=== PATIENT | female | born 1940 | race Caucasian/White ===

== ENCOUNTER → 2018-06-06 12:39 | Outpatient (CLI) | payer MEDICARE, OTHER, SELFPAY ==
--- NOTE | 2018-06-06 12:41 | DI.ECHO.S_ITS ---
[facility] +---------+ : : [address] : [address] : : : : [id number] : : : : Phone: [phone]+ Echocardiogram Report + + :Name: NANCY MOTT Study Date: 06/06/2018 Height: 65 in : :[facility] Exam Location: IS Weight: 105 lb : : Gender: Female BSA: 1.5 m2 : :: 1940 Age: 78 yrs BP: 128/55 mmHg: :Reason For Study: ARRHYTHMIA, SOB : : Performed By: Lex Jenkins : :Referring: UBALDO GREGORY P : + + Interpretation Summary The patient was in normal sinus rhythm during the exam. The patient had frequent PACs during the exam. The left ventricle is normal in size. The ejection fraction is estimated to be 60-65%. There are no focal wall motion abnormalities. Diastolic parameters suggest a relaxation abnormality of the left ventricle, consistent with probable normal filling pressures. The right ventricle is normal in size and function. There is moderate biatrial enlargement. There is slight late systolic prolapse of the posterior leaflet of the mitral valve with evidence of prominent mitral insufficiency that occurs during the last half of systole. This is not a holosystolic jet of mitral regurgitation but a late systolic regurgitation related to prolapse of the posterior leaflet. There is mild aortic regurgitation. The right ventricular systolic pressure is estimated to be at least 25 mmHg based on an estimated right atrial pressure of 3 mm Hg. No other echocardiographic abnormalities seen. This patient has evidence of mitral valve prolapse with late systolic mitral regurgitation of a fairly significant degree. Given the patient's history of dyspnea cardiology consultation should be considered. Procedure: A limited 2D, color and Doppler echocardiogram was performed to assess for arrhythmia and shortness of breath. The study quality was technically good. Comparison is made with the echocardiogram of 11/14/14. The patient was in normal sinus rhythm during the exam. The patient had frequent PACs during the exam. Left Ventricle: The left ventricle is normal in size. There is normal left ventricular wall thickness. The ejection fraction is estimated to be 60-65%. There are no focal wall motion abnormalities. Diastolic parameters suggest a relaxation abnormality of the left ventricle, consistent with probable normal filling pressures. Right Ventricle: The right ventricle is normal in size and function. Atria: There is moderate biatrial enlargement. Mitral Valve: There is a flat closure plane of the the mitral valve leaflets. There is slight late systolic prolapse of the posterior leaflet of the mitral valve with evidence of prominent mitral insufficiency that occurs during the last half of systole. This is not a holosystolic jet of mitral regurgitation but a late systolic regurgitation related to prolapse of the posterior leaflet. Aortic Valve: A bicuspid aortic valve cannot be excluded. There is no hemodynamically significant valvular aortic stenosis. There is mild aortic regurgitation. Tricuspid Valve: The tricuspid valve is normal in structure and function. There is mild tricuspid regurgitation. The right ventricular systolic pressure is estimated to be at least 25 mmHg based on an estimated right atrial pressure of 3 mm Hg. Great Vessels: The ascending aorta is mildly enlarged. The IVC is of normal diameter and collapses greater than 50% with a sniff. This suggests a low right atrial pressure of 3 mm Hg. MMode/2D Measurements & Calculations LVIDd: 4.4 cm asc Aorta Diam: 3.6 cm LVIDs: 2.6 cm FS: 41.2 % IVSd: 0.84 cm LVPWd: 0.86 cm LV burks. diameter/BSA (cm/m^2): 2.9 LV sys. diameter/BSA (cm/m^2): 1.7 LA A2 area: 23.3 cm2 RA long axis: 4.8 cm LA A4 area: 20.3 cm2 RA area: 21.2 cm2 LA length (vol): 5.3 cm RA vol: 79.4 ml LA vol: 75.2 ml RA : 52.8 ml/m2 LA vol index: 50.0 ml/m2 IVC diam: 2.1 cm Doppler Measurements & Calculations MV E max una: 59.3 cm/sec TR max una: 234.6 cm/sec MV A max uan: 72.5 cm/sec TR max P.0 mmHg MV E/A: 0.82 MV dec time: 0.24 sec Reading Physician:05:31 PM
== END ==
PROVIDERS: PCP Student in an Organized Health Care Education/Training Program
DX: I08.3 Combined rheumatic disorders of mitral, aortic and tricuspid valves (principal); I49.9 Cardiac arrhythmia, unspecified; R06.02 Shortness of breath
CPT/HCPCS: 93307

== ENCOUNTER → 2018-06-14 16:14 | Outpatient (CLI) | payer MEDICARE, OTHER, SELFPAY ==
[2018-06-14 17:35] LABS: Reticulocyte Count, Percent 1.4 % (1.06-2.63)
[2018-06-14 17:40] LABS: Add Manual Diff / Slide Review NO; Basophils Percent Auto 1.3 % (0-2); Eosinophils Percent Auto 2.6 % (2-4); Hematocrit 23.7 % (36-46); Hemoglobin 7.2 g/dL (12.0-16.0); Lymphocytes Percent Auto 29.1 % (25-40); Mean Corpuscular HGB Conc 30.4 % (30-36); Mean Corpuscular Hemoglobin 22.7 PG (26-34); Mean Corpuscular Volume 74.6 fL (80-100); Monocytes Percent Auto 17.4 % (3-14); Neutrophils Absolute Auto 2400 /uL (3000-5900); Neutrophils Percent Auto 49.6 % (50-75); Platelet Count 405 X10^3/uL (150-400); Red Blood Cell Count 3.17 X10^6/uL (4.0-5.2); Red Cell Distribution Width 19.1 % (11.6-14.8); White Blood Cell Count 4.8 X10^3/uL (4.5-11.0)
[2018-06-14 17:48] LABS: Erythrocyte Sedimentation Rate 42 MM/HR (0-20)
[2018-06-14 18:39] LABS: BUN Creatinine Ratio 28.8 (6-22); Blood Urea Nitrogen 23 mg/dL (7-17); Calcium 9.1 mg/dL (8.4-10.2); Carbon Dioxide 26 mmol/L (22-32); Chloride 103 mmol/L (98-107); Cholesterol 154 mg/dL (140-199); Estimated Glomerular Filt Rate > 60.0 mL/min (>60); Glucose 109 mg/dL (80-110); HDL Cholesterol 74 mg/dL (40-60); HEMOLYSIS < 15 (0-50); Iron 25 ug/dL (37-170); LDL Cholesterol Calculated 62 mg/dL (<100); Potassium 4.7 mmol/L (3.4-5.1); Sodium 143 mmol/L (137-145); Triglycerides 89 mg/dL (35-150)
[2018-06-14 18:51] LABS: Percent Iron Saturation 6 % (15-50); Total Iron Binding Capacity 447 ug/dL (265-497)
[2018-06-14 18:56] LABS: Vitamin D 25 Hydroxy (D3) 67.6 ng/mL (30.0-100.0)
[2018-06-14 19:03] LABS: Transferrin 381 mg/dL (206-381)
[2018-06-14 19:11] LABS: TSH w/ Reflex to FT4 4.22 uIU/mL (0.47-4.68)
[2018-06-14 19:15] LABS: Ferritin 7.1 ng/mL (11.1-264)
[2018-06-14 19:45] LABS: Folate 7.1 ng/mL (2.76-20.0); Vitamin B12 309 pg/mL (239-931)
== END ==
PROVIDERS: PCP Student in an Organized Health Care Education/Training Program; Visit Provider Student in an Organized Health Care Education/Training Program
DX: D64.9 Anemia, unspecified (principal); R68.89 Other general symptoms and signs; Z13.220 Encounter for screening for lipoid disorders; E55.9 Vitamin D deficiency, unspecified
CPT/HCPCS: 80048; 80061; 82306; 82607; 82728; 82746; 83540; 83550; 84443; 85025; 85045; 85651

== ENCOUNTER → 2018-06-19 09:48 | Outpatient (CLI) | payer MEDICARE, OTHER, SELFPAY ==
[2018-06-19 11:35] LABS: Occult Blood 1 Positive (Negative); Occult Blood 2 Positive (Negative); Occult Blood 3 Positive (Negative)
== END ==
PROVIDERS: PCP Student in an Organized Health Care Education/Training Program; Visit Provider Student in an Organized Health Care Education/Training Program
DX: E61.1 Iron deficiency (principal); R53.83 Other fatigue
CPT/HCPCS: 82270

== ENCOUNTER → 2018-07-14 11:07 | Outpatient (CLI) | payer MEDICARE, OTHER, SELFPAY | PROVIDERS: PCP Student in an Organized Health Care Education/Training Program; Visit Provider Student in an Organized Health Care Education/Training Program | DX: R53.83 Other fatigue (principal) | CPT/HCPCS: 36415; 85014; 85018 ==

== ENCOUNTER → 2018-09-06 08:30 | Outpatient (CLI) | payer MEDICARE, OTHER, SELFPAY ==
[2018-09-06 09:37] LABS: Hematocrit 35.9 % (36-46); Hemoglobin 11.6 g/dL (12.0-16.0); Mean Corpuscular HGB Conc 32.2 % (30-36); Mean Corpuscular Hemoglobin 29.4 PG (26-34); Mean Corpuscular Volume 91.4 fL (80-100); Platelet Count 214 X10^3/uL (150-400); Red Blood Cell Count 3.93 X10^6/uL (4.0-5.2); Red Cell Distribution Width 21.3 % (11.6-14.8); White Blood Cell Count 3.4 X10^3/uL (4.5-11.0)
[2018-09-06 09:59] LABS: Anisocytosis 1+
== END ==
PROVIDERS: PCP Student in an Organized Health Care Education/Training Program; Visit Provider Student in an Organized Health Care Education/Training Program
DX: D64.9 Anemia, unspecified (principal)
CPT/HCPCS: 36415; 85027

== ENCOUNTER → 2018-09-11 08:15 | Outpatient (CLI) | payer MEDICARE, OTHER, SELFPAY ==
[2018-09-11 10:07] LABS: Occult Blood 1 Negative (Negative)
[2018-09-11 10:08] LABS: Occult Blood 2 Negative (Negative); Occult Blood 3 Negative (Negative)
== END ==
PROVIDERS: PCP Student in an Organized Health Care Education/Training Program; Visit Provider Student in an Organized Health Care Education/Training Program
DX: D64.9 Anemia, unspecified (principal)
CPT/HCPCS: 82270

== ENCOUNTER → 2019-02-01 13:45 | Outpatient (CLI) | payer MEDICARE, OTHER, SELFPAY ==
[2019-02-01 15:26] LABS: Rheumatoid Factor < 8.6 IU/mL (<12.0)
[2019-02-05 10:43] LABS: CCP Antibodies IgG/IgA 11
== END ==
PROVIDERS: PCP Student in an Organized Health Care Education/Training Program; Visit Provider Orthopaedic Surgery
DX: M79.642 Pain in left hand (principal)
CPT/HCPCS: 36415; 86200; 86430

== ENCOUNTER → 2019-02-02 14:51 | Outpatient (CLI) | payer MEDICARE, OTHER, SELFPAY ==
--- NOTE | 2019-02-02 | DI.MG.S_ITS ---
BILATERAL DIGITAL SCREENING MAMMOGRAM 3D/2D WITH CAD: 02/02/2019 CLINICAL: Routine screening. Family history of breast cancer. Comparison is made to exams dated: 09/26/2017 mammogram, 07/30/2016 mammogram, 06/02/2015 mammogram, and 04/19/2014 mammogram - [facility]. The tissue of both breasts is heterogeneously dense. This may lower the sensitivity of mammography. Current study was also evaluated with a Computer Aided Detection (CAD) system. There is an oval asymmetry with an indistinct margin in the right breast anterior depth central to the nipple seen on the craniocaudal view only. This is more prominent. No other significant masses, calcifications, or other findings are seen in either breast. IMPRESSION: INCOMPLETE: NEEDS ADDITIONAL IMAGING EVALUATION The oval asymmetry in the right breast is indeterminate. A diagnostic mammogram and ultrasound is recommended. This exam was interpreted at Station ID: [id number]. NOTE: For mammograms, a report in lay terms will be sent to the patient. Approximately 15% of breast malignancies will not be visualized mammographically. In the management of a palpable breast mass, a negative mammogram must not discourage biopsy of a clinically suspicious lesion. Electronically Signed By: Madeline castillo/:02/02/2019 17:24:30 copy to: Luiz Robertson letter sent: Additional Imaging Needed ACR BI-RADS Category 0: Incomplete [id number]
== END ==
PROVIDERS: PCP Student in an Organized Health Care Education/Training Program; Visit Provider Student in an Organized Health Care Education/Training Program
DX: Z12.31 Encounter for screening mammogram for malignant neoplasm of breast (principal); Z80.3 Family history of malignant neoplasm of breast
CPT/HCPCS: 77063; 77067

== ENCOUNTER → 2019-02-22 13:34 | Outpatient (CLI) | payer MEDICARE, OTHER, SELFPAY ==
--- NOTE | 2019-02-22 | DI.MG.S_ITS ---
UNILATERAL RIGHT DIGITAL DIAGNOSTIC MAMMOGRAM 3D/2D WITH ADDITIONAL VIEWS: 02/22/2019 CLINICAL: Additional evaluation requested from prior study. Comparison is made to exams dated: 02/02/2019 mammogram, 09/26/2017 mammogram, and 07/30/2016 mammogram - [facility]. The tissue of right breast is heterogeneously dense. This may lower the sensitivity of mammography. Previously noted oval asymmetry with an indistinct margin in the right breast anterior depth central to the nipple seen on the craniocaudal view only on comparison screening mammogram of 02/02/19 localizes to the superior right breast and has an appearance closer to benign fibroglandular tissues on additional views. IMPRESSION: INCOMPLETE: NEEDS ADDITIONAL IMAGING EVALUATION Previously noted oval asymmetry with an indistinct margin in the right breast anterior depth central to the nipple seen on the craniocaudal view only on comparison screening mammogram of 02/02/19 localizes to the superior right breast and has an appearance closer to benign fibroglandular tissues on additional views. A targeted ultrasound is recommended and will be performed immediately following this exam. This exam was interpreted at Station ID: [id number]. NOTE: For mammograms, a report in lay terms will be sent to the patient. Approximately 15% of breast malignancies will not be visualized mammographically. In the management of a palpable breast mass, a negative mammogram must not discourage biopsy of a clinically suspicious lesion. Electronically Signed By: Dakotah Medrano M.D. ecl/:02/22/2019 14:58:20 copy to: Luiz Robertson ACR BI-RADS Category 0: Incomplete [id number]
--- NOTE | 2019-02-22 13:37 | DI.US.S_ITS ---
LIMITED ULTRASOUND OF RIGHT BREAST: 02/22/2019 CLINICAL: Patient returns today to evaluate an asymmetry in the right breast. Comparison is made to exams dated: 02/22/2019 mammogram, 02/02/2019 mammogram, 09/26/2017 mammogram, 07/30/2016 mammogram, and 06/02/2015 mammogram - [facility]. Color flow and real-time ultrasound of the right breast 11-1 o'clock and 5-7 o'clock regions were performed. Woo scale images of the real-time examination were reviewed. There is a 0.4 x 0.3 x 0.3 cm oval indistinct hypoechoic mass with mild posterior shadowing, and no vascularity on Doppler ultrasound located in the right breast at 12 o'clock 2 cm from the nipple. This may correlate with the finding seen on mammography. Targeted ultrasound of the right axilla demonstrates multiple indeterminate lymph nodes which have preserved fatty julissa and expected mild hilar vascularity on Doppler ultrasound, but borderline cortical thickening up to 4 mm in cortical thickness. IMPRESSION: SUSPICIOUS OF MALIGNANCY 1) 0.4 x 0.3 x 0.3 cm oval indistinct hypoechoic mass in the right breast at 12 o'clock 2 cm from the nipple is at low suspicion for malignancy. An ultrasound guided biopsy is recommended. 2) Borderline cortical thickening of multiple right axillary lymph nodes, possibly reactive. Recommend re-evaluation of these lymph nodes on the day of the biopsy recommended above, with subsequent ultrasound guided axillary lymph node biopsy if abnormal lymph nodes persist. These results and recommendations were discussed with the patient at the time of the exam by the [facility] Radiologist Dr. Salvatore Crowder in person. This exam was interpreted at Station ID: [id number]. Electronically Signed By: Dakotah Medrano M.D. ecl/:02/26/2019 09:25:24 copy to: Luiz Robertson letter sent: Biopsy Required Ultrasound BI-RADS: 4a Suspicious abnormality - low suspicion for malignancy
== END ==
PROVIDERS: PCP Student in an Organized Health Care Education/Training Program; Visit Provider Student in an Organized Health Care Education/Training Program
DX: R92.8 Other abnormal and inconclusive findings on diagnostic imaging of breast (principal); N64.89 Other specified disorders of breast; N63.31 Unspecified lump in axillary tail of the right breast
CPT/HCPCS: 76642; 77065; G0279

== ENCOUNTER → 2019-03-12 13:10 | Outpatient (CLI) | payer MEDICARE, OTHER, SELFPAY ==
--- NOTE | 2019-03-12 | DI.US.S_ITS ---
ULTRASOUND OF RIGHT BREAST AND AXILLA: 03/12/2019 CLINICAL: Attempted right axillary lymph node biopsy. Comparison is made to exam dated: 02/22/2019 [facility]. Color flow ultrasound of the right breast axilla was performed on the areas of interest. Woo scale images of the real-time examination were reviewed. There is an oval lymph node with uniform cortical thickening with a circumscribed margin in the right axilla. This oval lymph node is hypoechoic with fatty hilum. This correlates with prior ultrasound findings. Color flow imaging demonstrates that there is no increase in vascularity. IMPRESSION: PROBABLY BENIGN The oval lymph node with uniform cortical thickening in the right axilla is probably benign. However, an US guided biopsy of the cortex was intended to be performed today. The position of the node and the angle for access resulted in poor visualization of the needle, directed towards the lung rather than the node. Biopsy was cancelled. Correlation with pathology report from the breast biopsy performed today is recommended. Surgical excision may become necessary if the small breast nodule is found to be maliignant. Clinical correlation is recommended over the next 6 months to ensure that growing adenopathy does not develop in this area. This exam was interpreted at Station ID: [id number]. Electronically Signed By: Timothy Lyons M.D. [facility]/:03/12/2019 17:59:24 copy to: Luiz Robertson Ultrasound BI-RADS: 3 Probably benign
--- NOTE | 2019-03-12 | PATH_ITS ---
[facility] Accession Number: [id number] . 01 Material submitted: . breast - RIGHT BREAST CORE BIOPSY 12:00 . 01 Clinical history: . 2 CM FN 3 PASSES . 02 Diagnosis: Right Breast Core Biopsy, 12 o'clock, 2 cm from Nipple: Benign breast parenchyma with features of fibrocystic change consisting of cystic dilatation of terminal ductules, apocrine metaplasia, adenosis, ductal hyperplasia without atypia, and stromal fibrosis with hyalinization. Pleomorphic and micro-calcifications are present and are associated with benign ductal epithelium. MRV/03/13/2019 . 02 Comment: Multiple attempts to make telephone contact and discuss results with Drs. Lyons or Rylie were unsuccessful (as of 3:15 p.m. on 03-13-19). . 02 Electronically signed: . Hayley Parikh MD, Pathologist NPI- [id number] . 01 Gross description: . Received in formalin and designated right breast core biopsy 12 o'clock 2 cm FN 3 passes is one formalin-filled container received with a white plastic filter. Sample is received loose in container and consists of multiple pieces of friable, yellow-castañeda soft tissue measuring 1.9 x 0.6 x 0.3 cm in aggregate. All tissue is entirely submitted in one cassette. Per the requisition, specimen was collected on 03/12/2019 at 16:34. Total fixation time of 12-24 hours. (MR:[id number]) /FRR . 02 Pathologist provided ICD-10: N63.10 . 02 CPT . 349961 Performed at: [address] [facility], [place], [place] [id number] MD Gustavo Aranda MD Phone: [phone] Performed at: 02 [facility] Midnight [address] [place] [id number] MD Inna Roe MD Phone: [phone]
--- NOTE | 2019-03-12 13:12 | DI.US.S_ITS ---
ULTRASOUND GUIDED BIOPSY RIGHT BREAST USING VACUUM DEVICE WITH MARKING DEVICE INSERTED AND POST DIGITAL MAMMOGRAPHIC IMAGIN03/12/2019 CLINICAL: Right breast mass. PATIENT CONSENT: Risks (minor bleeding, infection, vasovagal reaction and repeat procedure), benefits and alternatives were explained to the patient and written informed consent was obtained. Correlation is made to exams dated: 02/22/2019 ultrasound, 02/22/2019 mammogram, 02/02/2019 mammogram, 09/26/2017 mammogram, and 07/30/2016 mammogram - [facility]. An ultrasound guided biopsy using real-time ultrasound was performed for the concerning 0.4 cm x 0.3 cm x 0.4 cm circumscribed oval solid mass located in the right breast at 12 o'clock middle depth. This was described on the previous ultrasound report. The skin was prepped in the usual manner. Local anesthetic was administered to the access site. A skin tristan was made in the breast. The abnormality was approached from the lateral aspect. A 13 gauge biopsy needle was placed adjacent to the abnormality under ultrasound guidance. Once the needle was documented to be in the correct location, three specimens were obtained using the Mammotome biopsy system. Lidocaine with epinephrine was injected before the biopsy was performed. A Vision marker clip was inserted into the biopsy cavity. A skin closure strip was applied to the access site. Post procedure imaging demonstrates the location device at the targeted area. The specimens were sent to the laboratory for pathological analysis. Arterial bleeding from site of biopsy had been observed. Over 1 hour of targeted compression and observation was used to document termination of the arterial bleeding, mild in severity, and then the patient was released to home. IMPRESSION: ULTRASOUND GUIDED BIOPSY BENIGN Ultrasound guided biopsy of the 0.4 cm x 0.3 cm x 0.4 cm solid mass in the right breast at 12 o'clock middle depth was successful. Complication with this procedure was arterial bleeding, mild in severity, and was controlled prior to release of the patient. Post biopsy film demonstrates the biopsy marker slightly anterior to the mammography finding seen previously. This may represent possible migration of the biopsy marker. The mammographic asymmetry is decreased in size. Pathology results demontrate fibrocystic changes. Findings are likely concordant with mammographic and ultrasound findings. However, given the position of the biopsy marker, a 6 month followup mammogram and ultrasound are recommended. This exam was interpreted at Station ID: [id number]. Timothy D. Eloy Albright M.D. [facility],ddp/:04/02/2019 17:53:45 copy to: Luiz Robertson
== END ==
PROVIDERS: PCP Student in an Organized Health Care Education/Training Program; Visit Provider Student in an Organized Health Care Education/Training Program
DX: R92.8 Other abnormal and inconclusive findings on diagnostic imaging of breast (principal)
CPT/HCPCS: 19083; 76882; 88305

== ENCOUNTER → 2019-04-02 10:06 | Outpatient (CLI) | payer MEDICARE, OTHER, SELFPAY ==
--- NOTE | 2019-04-02 | DI.MG.S_ITS ---
UNILATERAL RIGHT DIGITAL DIAGNOSTIC MAMMOGRAM: 04/02/2019 CLINICAL: Post clip placement. Comparison is made to exams dated: 03/12/2019 ultrasound biopsy, 02/22/2019 mammogram, 02/02/2019 mammogram, and 09/26/2017 mammogram - [facility]. The tissue of right breast is heterogeneously dense. This may lower the sensitivity of mammography. The patient underwent an ultrasound guided biopsy of a right breast 12:00 lesion on 03/12/19 which was complicated by arterial bleeding post procedure. The post procedure imaging was not done at that time. Patient returns for post procedure imaging today. There is a marker clip in the appropriate position in the right breast at 12 o'clock anterior depth. There is increased density in the surrounding tissue consistent with resolving hematoma. IMPRESSION: POST PROCEDURE MAMMOGRAM FOR MARKER PLACEMENT There was a successful marker clip placement in the right breast anterior depth. Increased density of the tissue is expected post procedure hemorrhage. This exam was interpreted at Station ID: [id number]. NOTE: For mammograms, a report in lay terms will be sent to the patient. Approximately 15% of breast malignancies will not be visualized mammographically. In the management of a palpable breast mass, a negative mammogram must not discourage biopsy of a clinically suspicious lesion. Electronically Signed By: Madeline castillo/:04/02/2019 10:57:30 copy to: Luiz Robertson ACR BI-RADS Category Post-procedure mammogram for marker placement
== END ==
PROVIDERS: PCP Student in an Organized Health Care Education/Training Program; Visit Provider Student in an Organized Health Care Education/Training Program
DX: R92.8 Other abnormal and inconclusive findings on diagnostic imaging of breast (principal); N63.10 Unspecified lump in the right breast, unspecified quadrant; L76.32 Postprocedural hematoma of skin and subcutaneous tissue following other procedure
CPT/HCPCS: 77065

== ENCOUNTER → 2019-04-12 13:54 | Outpatient (CLI) | payer MEDICARE, OTHER, SELFPAY ==
[2019-04-12 14:45] LABS: Hematocrit 36.3 % (36-46); Hemoglobin 12.4 g/dL (12.0-16.0); Mean Corpuscular HGB Conc 34.2 % (30-36); Mean Corpuscular Hemoglobin 33.3 PG (26-34); Mean Corpuscular Volume 97.6 fL (80-100); Platelet Count 220 X10^3/uL (150-400); Red Blood Cell Count 3.72 X10^6/uL (4.0-5.2); Red Cell Distribution Width 13.8 % (11.6-14.8); White Blood Cell Count 4.6 X10^3/uL (4.5-11.0)
[2019-04-12 15:28] LABS: HEMOLYSIS < 15 (0-50); Iron 89 ug/dL (37-170)
[2019-04-12 15:40] LABS: Percent Iron Saturation 27 % (15-50); Total Iron Binding Capacity 332 ug/dL (265-497); Transferrin 270 mg/dL (206-381)
== END ==
PROVIDERS: PCP Student in an Organized Health Care Education/Training Program; Visit Provider Student in an Organized Health Care Education/Training Program
DX: D50.9 Iron deficiency anemia, unspecified (principal)
CPT/HCPCS: 36415; 83540; 83550; 85027

== ENCOUNTER → 2019-04-24 10:55 | Outpatient (CLI) | payer MEDICARE, OTHER, SELFPAY ==
[2019-04-24 15:52] LABS: Appearance Urine UA CLEAR; Bilirubin Urine UA NEGATIVE (NEGATIVE); Color Urine UA YELLOW; Glucose Urine UA NEGATIVE (Negative); Ketones Urine UA NEGATIVE (NEGATIVE); Leukocyte Esterase Urine UA TRACE (NEGATIVE); Nitrite Urine UA NEGATIVE (Negative); Occult Blood Urine UA 1+ (Negative); Protein Urine UA NEGATIVE (Negative); Specific Gravity Urine UA 1.015 (1.000-1.035); Urobilinogen Urine UA 0.2 E.U./dL (0.2)
[2019-04-24 16:01] LABS: Bacteria Urine Occasional (0-1); Culture Indicated Urine Specimen Cultured; Mucus Urine 1+ (Negative); RBC Urine 5-10/HPF (0-5/HPF); Squamous Epithelial Cell Urine 0-1 /HPF (0-5/HPF); Transitional Epi Cells Urine 0-1/HPF (0-5/HPF); WBC Urine 5-10/HPF (0-5/HPF)
== END ==
PROVIDERS: PCP Student in an Organized Health Care Education/Training Program; Visit Provider Student in an Organized Health Care Education/Training Program
DX: R30.0 Dysuria (principal)
CPT/HCPCS: 81001; 87077; 87086; 87185; 87186

== ENCOUNTER → 2019-09-13 14:07 | Outpatient (CLI) | payer MEDICARE, OTHER, SELFPAY ==
--- NOTE | 2019-09-13 14:11 | DI.US.S_ITS ---
LIMITED ULTRASOUND OF RIGHT BREAST AND AXILLA: 09/13/2019 CLINICAL: 6 month follow-up biopsy. Comparison is made to exams dated: 09/13/2019 mammogram, 04/02/2019 mammogram, 03/12/2019 ultrasound, 03/12/2019 ultrasound biopsy, 02/22/2019 ultrasound, and 02/22/2019 mammogram - Loc[facility]. Real-time ultrasound of the right breast 12 o'clock, and axilla regions was performed on the areas of interest. There are multiple oval lymph nodes in the right axilla redemonstrated. These oval lymph nodes are of mixed echogenicity with fatty julissa and measure less than 1 cm in short axis. These again demonstrate mild cortical thickening measuring up to 0.5 cm. These abnormalities are not significantly changed. Color flow imaging demonstrates that there is no increase in vascularity. The benign mass in the right breast at 12 o'clock anterior depth is no longer seen. There is an associated biopsy clip. IMPRESSION: BENIGN There is no sonographic evidence of malignancy. The multiple oval lymph nodes in the right axilla are stable in appearance and measure less than 1 cm with preserved fatty julissa. In the absence of a suspicious breast mass, the findings are benign. A 1 year screening mammogram is recommended. This exam was interpreted at Station ID: [id number]. Electronically Signed By: Gustavo cabrera/:09/13/2019 15:40:21 copy to: Luiz Robertson letter sent: Normal Exam Ultrasound BI-RADS: 2 Benign
--- NOTE | 2019-09-13 14:11 | DI.MG.S_ITS ---
UNILATERAL RIGHT DIGITAL DIAGNOSTIC MAMMOGRAM 3D/2D SHORT-TERM FOLLOW-UP: 09/13/2019 CLINICAL: Patient returns for a 6 month follow up of the right breast. Post biopsy. Comparison is made to exams dated: 04/02/2019 mammogram, 02/22/2019 mammogram, and 02/02/2019 mammogram - [facility]. The tissue of right breast is heterogeneously dense. This may lower the sensitivity of mammography. The oval asymmetry in the right breast middle depth central to the nipple seen on the pre-biopsy images is no longer identified. There is a biopsy clip in the region. No other significant masses or calcifications are seen in the breast. IMPRESSION: INCOMPLETE: NEEDS ADDITIONAL IMAGING EVALUATION Previously identified oval asymmetry in the central right breast no longer visualized and likely corresponds to the biopsied mass. A followup ultrasound is recommended to re-evaluate the axillary lymph nodes seen on the prior ultrasound study. This exam was interpreted at Station ID: [id number]. NOTE: For mammograms, a report in lay terms will be sent to the patient. Approximately 15% of breast malignancies will not be visualized mammographically. In the management of a palpable breast mass, a negative mammogram must not discourage biopsy of a clinically suspicious lesion. Electronically Signed By: Gustavo Albright M.D. ddcolin/:09/13/2019 14:42:55 copy to: Luiz Robertson ACR BI-RADS Category 0: Incomplete [id number]
== END ==
PROVIDERS: PCP Student in an Organized Health Care Education/Training Program; Referring Provider Student in an Organized Health Care Education/Training Program; Visit Provider Student in an Organized Health Care Education/Training Program
DX: R92.8 Other abnormal and inconclusive findings on diagnostic imaging of breast (principal); Z13.820 Encounter for screening for osteoporosis; M81.0 Age-related osteoporosis without current pathological fracture; Z78.0 Asymptomatic menopausal state; Z91.89 Other specified personal risk factors, not elsewhere classified
CPT/HCPCS: 76642; 77065; 77080; G0279

== ENCOUNTER → 2019-09-21 11:08 | Outpatient (CLI) | payer MEDICARE, OTHER, SELFPAY ==
[2019-09-21 12:38] LABS: Appearance Urine UA SL CLOUDY; Bilirubin Urine UA NEGATIVE (NEGATIVE); Color Urine UA YELLOW; Glucose Urine UA NEGATIVE (Negative); Ketones Urine UA NEGATIVE (NEGATIVE); Leukocyte Esterase Urine UA 2+ (NEGATIVE); Nitrite Urine UA NEGATIVE (Negative); Occult Blood Urine UA 2+ (Negative); Protein Urine UA NEGATIVE (Negative); Specific Gravity Urine UA <=1.005 (1.000-1.035); Urobilinogen Urine UA 0.2 E.U./dL (0.2); pH Urine UA 5.5 (4.5-8.0)
[2019-09-21 12:46] LABS: Bacteria Urine Moderate (10-30); Culture Indicated Urine Specimen Cultured; RBC Urine 5-10/HPF (0-5/HPF); Renal Epithelial Cells Urine 1-5/HPF (0-1/HPF); Squamous Epithelial Cell Urine 1-5 /HPF (0-5/HPF); Transitional Epi Cells Urine 1-5/HPF (0-5/HPF); WBC Urine 10-30/HPF (0-5/HPF)
== END ==
PROVIDERS: PCP Student in an Organized Health Care Education/Training Program; Referring Provider Student in an Organized Health Care Education/Training Program; Visit Provider Student in an Organized Health Care Education/Training Program
DX: R30.0 Dysuria (principal)
CPT/HCPCS: 81001; 87077; 87086; 87186

== ENCOUNTER → 2019-09-25 11:05 | Outpatient (CLI) | payer MEDICARE, OTHER, SELFPAY ==
[2019-09-25 11:30] LABS: Hematocrit 37.4 % (36-46); Hemoglobin 12.7 g/dL (12.0-16.0); Mean Corpuscular Hemoglobin 32.7 PG (26-34); Mean Corpuscular Volume 96.2 fL (80-100); Platelet Count 220 X10^3/uL (150-400); Red Blood Cell Count 3.89 X10^6/uL (4.0-5.2); Red Cell Distribution Width 13.6 % (11.6-14.8); White Blood Cell Count 3.5 X10^3/uL (4.5-11.0)
[2019-09-25 11:44] LABS: Blood Urea Nitrogen 18 mg/dL (7-17); Estimated Glomerular Filt Rate > 60.0 mL/min (>60)
== END ==
PROVIDERS: PCP Student in an Organized Health Care Education/Training Program; Referring Provider Student in an Organized Health Care Education/Training Program; Visit Provider Student in an Organized Health Care Education/Training Program
DX: Z79.1 Long term (current) use of non-steroidal anti-inflammatories (NSAID) (principal); D50.0 Iron deficiency anemia secondary to blood loss (chronic)
CPT/HCPCS: 36415; 82565; 84520; 85027

== ENCOUNTER → 2021-01-29 11:09 | Outpatient (CLI) | payer MEDICARE, OTHER, SELFPAY ==
--- NOTE | 2021-01-29 | DI.MG.S_ITS ---
BILATERAL DIGITAL SCREENING MAMMOGRAM 3D/2D WITH CAD: 01/29/2021 CLINICAL: Routine screening. Family history of breast cancer. Comparison is made to exams dated: 09/13/2019 mammogram, 02/02/2019 mammogram, and 09/26/2017 mammogram - [facility]. The tissue of both breasts is heterogeneously dense. This may lower the sensitivity of mammography. Current study was also evaluated with a Computer Aided Detection (CAD) system. No significant masses, calcifications, or other findings are seen in either breast. There has been no significant interval change. IMPRESSION: NEGATIVE There is no mammographic evidence of malignancy. A 1 year screening mammogram is recommended. This exam was interpreted at Station ID: [id number]. NOTE: For mammograms, a report in lay terms will be sent to the patient. Approximately 15% of breast malignancies will not be visualized mammographically. In the management of a palpable breast mass, a negative mammogram must not discourage biopsy of a clinically suspicious lesion. Electronically Signed By: Anurag Wesley M.D., jr/román:01/29/2021 13:12:13 copy to: Luiz Robertson letter sent: Normal Exam ACR BI-RADS Category 1: Negative [id number]
== END ==
PROVIDERS: PCP Student in an Organized Health Care Education/Training Program; Referring Provider Student in an Organized Health Care Education/Training Program; Visit Provider Student in an Organized Health Care Education/Training Program
DX: Z12.31 Encounter for screening mammogram for malignant neoplasm of breast (principal); Z80.3 Family history of malignant neoplasm of breast
CPT/HCPCS: 77063; 77067

== ENCOUNTER → 2021-05-14 10:36 | Outpatient (CLI) | payer MEDICARE, OTHER, SELFPAY ==
--- NOTE | 2021-05-14 10:53 | DI.RAD.S_ITS ---
PROCEDURE: XR HIP W PEL IF DONE LT 2V INDICATIONS: Left hip pain TECHNIQUE: AP pelvis with lateral view(s) of the left hip(s). COMPARISON: [facility], , PELVIS 1 OR 2VW, 03/15/2011, 9:18. [facility], , HIP 2V RIGHT, 06/19/2009, 16:39. FINDINGS: Bones: No fractures or dislocations. Pelvic ring appears intact. No suspicious bony lesions. Right hip arthroplasty is present. Hardware is intact. Severe left hip degenerative narrowing is present with subchondral sclerosis and periarticular osteophytes. It is progressive since 2010. Soft tissues: The visualized bowel gas pattern is normal. No suspicious soft tissue calcifications. IMPRESSION: Progressive left hip osteoarthritis. Dictated by: Joyce Webb M.D. on 05/14/2021 at 17:21 Approved by: Joyce Webb M.D. on 05/14/2021 at 17:22
[2021-05-14 12:15] LABS: Hematocrit 34.8 % (36-46); Hemoglobin 11.5 g/dL (12.0-16.0); Mean Corpuscular Hemoglobin 30.3 PG (26-34); Mean Corpuscular Volume 91.9 fL (80-100); Platelet Count 223 X10^3/uL (150-400); Red Blood Cell Count 3.79 X10^6/uL (4.0-5.2); Red Cell Distribution Width 14.6 % (11.6-14.8)
== END ==
PROVIDERS: PCP Student in an Organized Health Care Education/Training Program; Referring Provider Student in an Organized Health Care Education/Training Program; Visit Provider Student in an Organized Health Care Education/Training Program
DX: Z86.2 Personal history of diseases of the blood and blood-forming organs and certain disorders involving the immune mechanism (principal); L73.9 Follicular disorder, unspecified
CPT/HCPCS: 36415; 73502; 85027

== ENCOUNTER 2021-11-21 10:35 | Emergency (ER) | payer MEDICARE, OTHER, SELFPAY ==
--- NOTE | 2021-11-21 10:55 | DI.RAD.S_ITS ---
PROCEDURE: XR ACUTE ABDOMEN SERIES INDICATIONS: Abdominal pain TECHNIQUE: One view chest and two views of the abdomen were acquired. COMPARISON: [facility], CR, XR SMALL BOWEL FOLLOW THROUGH WITH BARIUM, 09/06/2018, 10:15. FINDINGS: Surgical changes and devices: None. Chest: Biapical scars. Lungs are clear. Mild bilateral interstitial prominence. Heart size is normal. No pleural effusions. No pneumoperitoneum. Abdomen: Bowel gas pattern is normal. Moderate amount of stool in colon. No suspicious calcifications. Visualized solid organ contours appear normal. Bones: No suspicious bony lesions. Scoliosis and degenerative changes in lumbar spine. There is a right hip prosthesis. IMPRESSION: Moderate amount of stool in colon. Dictated by: Joy Snyder M.D. on 11/21/2021 at 11:33 Approved by: Joy Snyder M.D. on 11/21/2021 at 11:35
--- NOTE | 2021-11-21 10:56 | ED_ITS ---
HPI - Abdominal Pain General Chief Complaint: Abdominal Pain Stated Complaint: samara pain 1week Time Seen by Provider: 11/21/21 10:37 History of Present Illness HPI narrative: 81F nonsmoker with noncontributory medical history presents with her in the chief complaint of ongoing abdominal pain for the past week. She states that it was gradual in onset in his much of her abdomen. She denies obvious provocation, palliation or radiation. She denies any new medications or dietary change with states that over that time frame she has had increased difficulty and having a bowel movement. Historically she will go about 2-3 times per day but over this time frame she has gone multiple days at a time. She had been seen and evaluated at the walk-in clinic on and was started on a laxative and has had a few small movements but it did little to improve her discomfort. Additionally, at that time it is reported that she was found to be in atrial fibrillation. She had contacted her primary care doctor and has an appointment at the end of November. She denies any chest pain but does feel palpitations and shortness of breath. Other than she denies any history of atrial fib Related Data Home Medications Medication Instructions Recorded Confirmed cholecalciferol (vitamin D3) 50 2,000 unit PO QDAY #0 12/13/12 11/19/21 mcg (2,000 unit) capsule (Vitamin D3) Previous Rx's Medication Instructions Recorded celecoxib 200 mg capsule (Celebrex) 200 mg PO DAILY #90 cap 09/25/19 docusate sodium 100 mg capsule 100 mg PO BID 10 Days #20 cap 11/19/21 sennosides 8.6 mg capsule (senna) 8.6 mg PO DAILY 10 Days #10 cap 11/19/21 apixaban 5 mg tablet (Eliquis) 5 mg PO BID #60 tab 11/21/21 metoprolol tartrate 25 mg tablet 12.5 mg PO BID #30 tab 11/21/21 Allergies Allergy/AdvReac Type Severity Reaction Status Date / Time No Known Drug Allergies Allergy Unverified 11/19/21 12:35 Review of Systems Review of Systems Narrative: GENERAL: Denies chills, fatigue, malaise, fever, sweats. HEENT: Denies sinus pain, ear pain, sore throat, difficulty swallowing, dizziness. RESPIRATORY: See HPI CARDIOVASCULAR: See HPI GASTROINTESTINAL: See HPI : Denies dysuria, frequency, incontinence, hematuria, urinary retention. MUSCULOSKELETAL: denies weakness, joint pain, or bony pain SKIN: Denies rash, skin lesions, or other NEUROLOGIC: Denies weakness, headache, numbness, change in speech, confusion, seizures, incoordination. PSYCHIATRIC: No concerning psychosocial issues. 12 point review of systems is negative except for those stated above Patient History Medical History DJD (degenerative joint disease) of knee Surgical History History of carpal tunnel repair Status post colonoscopy Status post knee surgery Family History Son Renal failure Social History Smoking Status: Never smoker Smoking Status: Never smoker Exam Narrative Exam Narrative: GENERAL: [81 year old patient appears stated age. Well-developed patient, in mild distress. HEAD: Atraumatic. Normocephalic. EYES: Pupils equal round and reactive. Extraocular motions intact. No scleral i cterus. No injection or drainage. ENT: Nose without bleeding, purulent drainage. Throat without erythema, tonsillar hypertrophy or exudate. Airway patent. NECK: Trachea midline. Non tender CARDIOVASCULAR: Tachycardic and irregular rhythm without murmurs, gallops, or rubs. RESPIRATORY: Clear to auscultation. Breath sounds equal bilaterally. No wheezes, rales, or rhonchi. GASTROINTESTINAL: Abdomen soft, mild bloating, nondistended. Decreased bowel sounds throughout EXTREMITIES: No edema or joint tenderness. BACK: Nontender without deformity or crepitance. No flank tenderness. NEURO: AOx3. SKIN: No rash or erythema of visible areas Initial Vital Signs Initial Vital Signs: Vital Signs Temperature 97 F L 11/21/21 10:57 Pulse Rate 133 H 11/21/21 10:57 Respiratory Rate 20 11/21/21 10:57 Blood Pressure 128/87 11/21/21 10:57 Pulse Oximetry 94 11/21/21 10:57 Scores CHADS-VASc Congestive heart failure: no Hypertension: no Age 75 years or older: yes Diabetes mellitus: no Stroke, TIA, or TE: no Vascular disease: no Age 65 to 74 years: no Sex category (female): Female CHADS-VASc Score: 3 Course Orders Ordered: ED Orders 11/21/21 10:55 XR acute abdomen series Stat 11/21/21 11:13 COVID19 -Nasal RAPID/Pre-Proc Stat 11/21/21 11:40 Complete Blood Count AUTO DIFF Stat Comprehensive Metabolic Panel Stat Lipase Stat Magnesium Stat NT-proBNP (BNP-Adult 18+) Stat Prothrombin Time INR Stat TSH w/ Reflex to FT4 Stat Troponin & CK Cardiac Panel Stat 11/21/21 12:56 Urinalysis and Microscopic Stat Discontinued Medications Sodium Chloride (Normal Saline 0.9%) 500 mls @ 1,000 mls/hr IV BOLUS ONE Stop: 11/21/21 11:23 Last Infusion: 11/21/21 12:38 Dose: 0 mls/hr Documented by: Admin: 11/21/21 11:12 Dose: 1,000 mls/hr Documented by: NAUN Reevaluation(s) Reevaluation #1: Patient continues to be largely asymptomatic Vital Signs Vital signs: Vital Signs - 8 hr 11/21/21 10:57 Temperature 97 F L Pulse Rate 133 H Respiratory Rate 20 Blood Pressure 128/87 Pulse Oximetry 94 MDM - Abdominal Pain Lab Data Result diagrams: 11/21/21 11:40 11/21/21 11:40 Labs: Lab Results 11/21/21 11/21/21 11/21/21 Range/Units 11:13 11:40 11:40 WBC 5.3 (4.5-11.0) X10^3/uL RBC 3.68 L (4.0-5.2) X10^6/uL Hgb 11.1 L (12.0-16.0) g/dL Hct 32.9 L (36-46) % MCV 89.6 (80-100) fL MCH 30.1 (26-34) PG MCHC 33.6 (30-36) % RDW 14.1 (11.6-14.8) % Plt Count 248 (150-400) X10^3/uL Neut % (Auto) 69.6 (50-75) % Lymph % (Auto) 12.8 L (25-40) % [place] % (Auto) 16.7 H (3-14) % Eos % (Auto) 0.6 L (2-4) % Baso % (Auto) 0.3 (0-2) % Neut # (Auto) 3700 (6119-0442) /uL Lymph # (Auto) 700 L (8324-1949) /uL [place] # (Auto) 900 (0-900) /uL Eos # (Auto) 0 (0-450) /uL Baso # (Auto) 0 (0-100) /uL PT 13.4 H (10.1-12.7) SECONDS INR 1.2 (0.9-1.3) Sodium (137-145) mmol/L Potassium (3.4-5.1) mmol/L Chloride (98-107) mmol/L Carbon Dioxide (22-32) mmol/L BUN (7-17) mg/dL Creatinine (0.52-1.04) mg/dL Estimated GFR (>60) mL/min BUN/Creatinine Ratio (6-22) Glucose (80-110) mg/dL Calcium (8.4-10.2) mg/dL Magnesium (1.6-2.3) mg/dL Total Bilirubin (0.2-1.3) mg/dL AST (14-36) IU/L ALT (<35) IU/L Alkaline Phosphatase (38-126) U/L Total Creatine Kinase (30-135) U/L CK-MB (CK-2) CK-MB (CK-2) Rel Index Troponin I (0.01-0.034) ng/mL NT-Pro-B Natriuret Pep (<450) pg/mL Total Protein (6.3-8.2) g/dL Albumin (3.5-5.0) g/dL Globulin (1.7-4.1) g/dL Albumin/Globulin Ratio (1.0-2.8) Lipase (23-300) U/L TSH (0.47-4.68) uIU/mL Urine Color Urine Appearance Urine pH (4.5-8.0) Ur Specific [place] (1.000-1.035) Urine Protein (Negative) Urine Glucose (UA) (Negative) g/dL Urine Ketones (NEGATIVE) Urine Occult Blood (Negative) Urine Nitrate (Negative) Urine Bilirubin (NEGATIVE) Urine Urobilinogen (0.2) E.U./dL Ur Leukocyte Esterase (NEGATIVE) Urine RBC (0-5/HPF) Urine WBC (0-5/HPF) Ur Squamous Epith Cells (0-5/HPF) Urine Bacteria (None) Ur Culture Indicated? SARS-CoV-2 (PCR) Negative (Negative) 11/21/21 11/21/21 11/21/21 Range/Units 11:40 11:40 12:56 WBC (4.5-11.0) X10^3/uL RBC (4.0-5.2) X10^6/uL Hgb (12.0-16.0) g/dL Hct (36-46) % MCV (80-100) fL MCH (26-34) PG MCHC (30-36) % RDW (11.6-14.8) % Plt Count (150-400) X10^3/uL Neut % (Auto) (50-75) % Lymph % (Auto) (25-40) % [place] % (Auto) (3-14) % Eos % (Auto) (2-4) % Baso % (Auto) (0-2) % Neut # (Auto) (0172-1765) /uL Lymph # (Auto) (0872-7720) /uL [place] # (Auto) (0-900) /uL Eos # (Auto) (0-450) /uL Baso # (Auto) (0-100) /uL PT (10.1-12.7) SECONDS INR (0.9-1.3) Sodium 140 (137-145) mmol/L Potassium 4.4 (3.4-5.1) mmol/L Chloride 104 (98-107) mmol/L Carbon Dioxide 28 (22-32) mmol/L BUN 12 (7-17) mg/dL Creatinine 0.67 (0.52-1.04) mg/dL Estimated GFR > 60 (>60) mL/min BUN/Creatinine Ratio 17.9 (6-22) Glucose 114 H (80-110) mg/dL Calcium 9.0 (8.4-10.2) mg/dL Magnesium 2.2 (1.6-2.3) mg/dL Total Bilirubin 0.8 (0.2-1.3) mg/dL AST 43 H (14-36) IU/L ALT 18 (<35) IU/L Alkaline Phosphatase 96 (38-126) U/L Total Creatine Kinase 57 (30-135) U/L CK-MB (CK-2) TNP CK-MB (CK-2) Rel Index TNP Troponin I < 0.012 (0.01-0.034) ng/mL NT-Pro-B Natriuret Pep 1840 H (<450) pg/mL Total Protein 8.2 (6.3-8.2) g/dL Albumin 4.5 (3.5-5.0) g/dL Globulin 3.7 (1.7-4.1) g/dL Albumin/Globulin Ratio 1.2 (1.0-2.8) Lipase 197 (23-300) U/L TSH 2.50 (0.47-4.68) uIU/mL Urine Color Yellow Urine Appearance Slightly cloudy Urine pH 5.0 (4.5-8.0) Ur Specific [place] 1.010 (1.000-1.035) Urine Protein Negative (Negative) Urine Glucose (UA) Negative (Negative) g/dL Urine Ketones Negative (NEGATIVE) Urine Occult Blood 3+ H (Negative) Urine Nitrate Negative (Negative) Urine Bilirubin Negative (NEGATIVE) Urine Urobilinogen 0.2 (0.2) E.U./dL Ur Leukocyte Esterase Negative (NEGATIVE) Urine RBC 5-10/hpf H (0-5/HPF) Urine WBC None seen (0-5/HPF) Ur Squamous Epith Cells 5-10 /hpf H (0-5/HPF) Urine Bacteria None seen (None) Ur Culture Indicated? Cult not indicated SARS-CoV-2 (PCR) (Negative) Imaging Data Abdominal x-ray: Radiologist's Impression: Launch?[address] [address] XRay Report Signed Patient: Jaelyn Gomez MR#: [id number] : 1940 Acct:[id number] Age/Sex: 81 / F Date of Service: 11/21/21 Loc: ED Accession Number: [id number] ?? Procedure: XR acute abdomen series Ordering Provider: Khang Ortiz D.O. PROCEDURE:? XR ACUTE ABDOMEN SERIES ? INDICATIONS:? Abdominal pain ? TECHNIQUE:? One view chest and two views of the abdomen were acquired.? ? COMPARISON:? [facility], CR, XR SMALL BOWEL FOLLOW THROUGH WITH BARIUM, 09/06/2018, 10:15. ? FINDINGS:? ? Surgical changes and devices:? None.? ? Chest:? Biapical scars.? Lungs are clear.? Mild bilateral interstitial prominence.? Heart size is normal.? No pleural effusions.? No pneumoperitoneum.? ? Abdomen:? Bowel gas pattern is normal.? Moderate amount of stool in colon.? No suspicious calcifications.? Visualized solid organ contours appear normal.? ? Bones:? No suspicious bony lesions.? Scoliosis and degenerative changes in lumbar spine.? There is a right hip prosthesis. ? IMPRESSION:? Moderate amount of stool in colon. ? ? Dictated by: Joy Snyder M.D. on 11/21/2021 at 11:33 ? ? Approved by: Joy Snyder M.D. on 11/21/2021 at 11:35 ? MDM Narrative Medical decision making narrative: Patient with reassuring history and physical exam. She has had decreased bowel movements for the past week in the absence of medication change or dietary change. There is no evidence of obstruction and patient has only had a dose or 2 of laxative. With extensive discussion about the need for physical activity, appropriate hydration, eating food as well as some combination of [id number] laxative is likely for multiple days. Additionally, she continues to have largely asymptomatic AFib with rate primarily 90s with occasional increased to the 110s or so. Patient does not knee any admission criteria for her atrial fibrillation but would benefit from a low-dose rate- controlling medication, and given her chads Vasc score of 3 she will require anticoagulation. Patient and had questions and concerns answered to their apparent satisfaction, return precautions discussed Discharge Plan Departure Patient Disposition: Home Clinical Impression: Constipation, Atrial fibrillation Instructions: DI for Atrial Fibrillation, DI for Constipation Activity Restrictions/Additional Instructions: *You have been diagnosed with [ abdominal pain due to constipation, also newly discovered atrial fibrillation with occasional tachycardia *What to do: *You have been diagnosed with [newly discovered atrial fibrillation and constipation] *What to do: ATRIAL FIBRILLATION [x ] New medication prescriptions sent to your pharmacy: [[facility] ] [ ] New medication written as a paper prescription [ ] No new medications given *Please follow up with your primary care provider in 2-3 days, call for an appointment. Let them know you were seen in the Emergency Department and that we ask that you be seen in follow up. We will electronically transmit a record of today's note if your PCP is in our system CONSTIPATION *Take over the counter medications as directed: 1. Metamucil - bulk forming laxative adds fiber 2. Colace - softens your stool 3. Dulcolax Suppository - stimulates your bowels from the bottom *Follow up with your primary care provider in 2-3 days, call for appointment *Return to ER if you should have any new, worsening or concerning symptoms *Drink plenty of water and eat foods high in fiber *Try to be as active as possible, consider walking your dog daily *Return to Emergency Department if you should have any new, worsening or con cerning symptoms, such as [fever greater than 101 F, shaking chills, worsening pain, persistent vomiting, abnormal bleeding or other bothersome symptoms] Prescriptions: New metoprolol tartrate 25 mg tablet 12.5 mg PO BID Qty: 30 0RF Eliquis 5 mg tablet 5 mg PO BID Qty: 60 0RF No Action docusate sodium 100 mg capsule 100 mg PO BID 10 Days Qty: 20 0RF senna 8.6 mg capsule 8.6 mg PO DAILY 10 Days Qty: 10 0RF cholecalciferol (vitamin D3) [Vitamin D3] 2,000 UNIT capsule 2,000 unit PO QDAY Qty: 0 0RF celecoxib [Celebrex] 200 mg capsule 200 mg PO DAILY Qty: 90 5RF Referrals: Carlos Youngblood MD [Primary Care Provider] -
[2021-11-21 10:57] VITALS: BP 128/87; PULSE 133; RESP 20; TEMP 36.1; O2SAT 94; BMI 17.2
[2021-11-21] MEDS: SODIUM CHLORIDE 0.9% 500 ML 1000 ML IV (11:12)
[2021-11-21 11:50] LABS: Add Manual Diff / Slide Review NO; Basophils Absolute Auto 0 /uL (0-100); Basophils Percent Auto 0.3 % (0-2); Eosinophils Absolute Auto 0 /uL (0-450); Eosinophils Percent Auto 0.6 % (2-4); Hematocrit 32.9 % (36-46); Hemoglobin 11.1 g/dL (12.0-16.0); Lymphocytes Absolute Auto 700 /uL (1100-4500); Lymphocytes Percent Auto 12.8 % (25-40); Mean Corpuscular HGB Conc 33.6 % (30-36); Mean Corpuscular Hemoglobin 30.1 PG (26-34); Mean Corpuscular Volume 89.6 fL (80-100); Monocytes Absolute Auto 900 /uL (0-900); Monocytes Percent Auto 16.7 % (3-14); Neutrophils Absolute Auto 3700 /uL (1500-7000); Neutrophils Percent Auto 69.6 % (50-75); Platelet Count 248 X10^3/uL (150-400); Red Blood Cell Count 3.68 X10^6/uL (4.0-5.2); Red Cell Distribution Width 14.1 % (11.6-14.8); White Blood Cell Count 5.3 X10^3/uL (4.5-11.0)
[2021-11-21 11:50] LABS: COVID19 -Nasal RAPID Negative (Negative)
[2021-11-21 11:56] LABS: INR 1.2 (0.9-1.3); Prothrombin Time 13.4 SECONDS (10.1-12.7)
[2021-11-21 12:01] LABS: Alanine Aminotransferase 18 IU/L (<35); Albumin 4.5 g/dL (3.5-5.0); Albumin Globulin Ratio 1.2 (1.0-2.8); Alkaline Phosphatase 96 U/L (38-126); Aspartate Aminotransferase 43 IU/L (14-36); BUN Creatinine Ratio 17.9 (6-22); Bilirubin Total 0.8 mg/dL (0.2-1.3); Blood Urea Nitrogen 12 mg/dL (7-17); Carbon Dioxide 28 mmol/L (22-32); Chloride 104 mmol/L (98-107); Creatine Kinase 57 U/L (30-135); Estimated Glomerular Filt Rate > 60 mL/min (>60); Globulin 3.7 g/dL (1.7-4.1); Glucose 114 mg/dL (80-110); HEMOLYSIS < 15 (0-50); Lipase 197 U/L (23-300); Magnesium 2.2 mg/dL (1.6-2.3); Potassium 4.4 mmol/L (3.4-5.1); Sodium 140 mmol/L (137-145); Total Protein 8.2 g/dL (6.3-8.2)
[2021-11-21 12:13] LABS: NT-proBNP (BNP-Adult 18+) 1840 pg/mL (<450); Troponin I < 0.012 ng/mL (0.01-0.034)
[2021-11-21 13:12] LABS: Bilirubin Urine UA NEGATIVE (NEGATIVE); Color Urine UA YELLOW; Glucose Urine UA NEGATIVE (Negative); Ketones Urine UA NEGATIVE (NEGATIVE); Leukocyte Esterase Urine UA NEGATIVE (NEGATIVE); Nitrite Urine UA NEGATIVE (Negative); Occult Blood Urine UA 3+ (Negative); Protein Urine UA NEGATIVE (Negative); Urobilinogen Urine UA 0.2 E.U./dL (0.2)
[2021-11-21 13:14] LABS: Appearance Urine UA Slightly Cloudy
[2021-11-21 13:33] LABS: RBC Urine 5-10/HPF (0-5/HPF); Squamous Epithelial Cell Urine 5-10 /HPF (0-5/HPF); WBC Urine None Seen (0-5/HPF)
[2021-11-21 13:34] LABS: Bacteria Urine None Seen; Culture Indicated Urine Cult Not Indicated
[2021-11-21 15:39] VITALS: BP 103/55; PULSE 80; RESP 18; O2SAT 98
== END 2021-11-21 15:41 | disposition home or self-care (01) ==
PROVIDERS: Emergency Provider Emergency Medicine; PCP Student in an Organized Health Care Education/Training Program
DX: K59.00 Constipation, unspecified (principal); I48.91 Unspecified atrial fibrillation; Z20.822 Contact with and (suspected) exposure to COVID-19
CPT/HCPCS: 36415; 74022; 80053; 81001; 82550; 83690; 83735; 83880; 84443; 84484; 85025; 85610; 87635; 93005; 93010; 99284; C9803

== ENCOUNTER → 2021-12-03 10:40 | Outpatient (CLI) | payer MEDICARE, OTHER, SELFPAY ==
[2021-12-03 16:35] LABS: Microalbumin Urine Random 3.2 mg/dL (0-1.6)
[2021-12-03 16:52] LABS: Creatinine Urine Random 91.6 mg/dL; Microalbumi Creatinin Ratio Ur 34.9 ug/mg CR (<30)
[2022-01-06 11:55] LABS: Occult Blood 1 Negative (Negative)
== END ==
PROVIDERS: PCP Student in an Organized Health Care Education/Training Program; Referring Provider Student in an Organized Health Care Education/Training Program; Visit Provider Student in an Organized Health Care Education/Training Program
DX: R31.9 Hematuria, unspecified (principal)
CPT/HCPCS: 82043; 82270; 82570

== ENCOUNTER 2021-12-11 20:40 | Emergency (ER) | payer MEDICARE, OTHER, SELFPAY ==
[2021-12-11 20:45] VITALS: BP 186/91; PULSE 86; RESP 16; TEMP 36.7; O2SAT 99; BMI 17.6
--- NOTE | 2021-12-11 22:05 | ED_ITS ---
HPI - General Adult General Chief complaint: Extremity Injury, Upper Stated complaint: Left hand painful and swelling Time Seen by Provider: 12/11/21 21:57 Source: patient Mode of arrival: Ambulatory Limitations: no limitations History of Present Illness HPI narrative: Patient is an 81-year-old who is here for evaluation of painful swelling on the back of her left hand. She states she noticed it last evening. Actually woke her from sleep. She had very similar symptoms a couple weeks ago however was not as bad not as painful as what it is today. There was no specific trauma that she remembers. She does have a history of arthritis but the a swelling and discomfort is over the macula hand. She is on anticoagulation however when this happened the 1st time she was not on anticoagulation. No fevers. No other joint pain. Has not tried anything for the symptoms prior to arrival. Related Data Home Medications Medication Instructions Recorded Confirmed cholecalciferol (vitamin D3) 50 2,000 unit PO QDAY #0 12/13/12 12/03/21 mcg (2,000 unit) capsule (Vitamin D3) Previous Rx's Medication Instructions Recorded celecoxib 200 mg capsule (Celebrex) 200 mg PO DAILY #90 cap 09/25/19 apixaban 5 mg tablet (Eliquis) 5 mg PO BID 90 Days #180 tab 11/26/21 metoprolol tartrate 25 mg tablet 12.5 mg PO BID 90 Days #90 tab 11/26/21 Allergies Allergy/AdvReac Type Severity Reaction Status Date / Time No Known Drug Allergies Allergy Unverified 12/03/21 10:09 Review of Systems Musculoskeletal Musculoskeletal: Reports system reviewed and no additional complaints, except as documented Integumentary/Breasts Skin/Breast: Reports system reviewed and no additional complaints, except as documented Neurologic Neurologic: Reports system reviewed and no additional complaints, except as documented Hematologic/Lymphatic On Anticoagulants: Yes Allergic/Immunologic Allergic/Immunologic: Reports system reviewed and no additional complaints, except as documented Patient History Medical History Celiac disease DJD (degenerative joint disease) of knee Surgical History History of carpal tunnel repair Status post colonoscopy Status post knee surgery Family History Son Renal failure Social History Smoking Status: Never smoker Smoking Status: Never smoker alcohol intake frequency: 0-2 drinks per day Alcohol type: wine Substance Use Type: does not use Exam Initial Vital Signs Initial Vital Signs: Vital Signs Temperature 98.1 F 12/11/21 20:45 Pulse Rate 86 12/11/21 20:45 Respiratory Rate 16 12/11/21 20:45 Blood Pressure 186/91 H 12/11/21 20:45 Pulse Oximetry 99 12/11/21 20:45 Const General: cooperative, comfortable and well developed Skin General: no rashes or lesions noted Neuro Sensory Exam: no sensory deficits noted Extrem Other: No pain to the left elbow. No pain to left wrist. She does have swelling isolated to the dorsum of the left hand in between the risks and the MCP joint of her fingers. Her thumb and her fingers her unremarkable. Course Orders Ordered: ED Orders 12/11/21 22:06 XR hand LT min 3V Stat Vital Signs Vital signs: Vital Signs - 8 hr 12/11/21 20:45 12/11/21 23:12 Temperature 98.1 F Pulse Rate 86 88 Respiratory Rate 16 18 Blood Pressure 186/91 H 132/69 Pulse Oximetry 99 98 Medical Decision Making Imaging Data Extremity x-ray #1: Radiologist's Impression: [address] [address] XRay Report Signed Patient: Jaelyn Gomez MR#: [id number] : 1940 Acct:[id number] Age/Sex: 81 / F Date of Service: 12/11/21 Loc: ED Accession Number: [id number] ?? Procedure: XR hand LT min 3V Ordering Provider: Sean Henderson D.O. PROCEDURE:? XR HAND LT MIN 3V ? INDICATIONS:? swollen dorsum L hand ? TECHNIQUE:? 3 views of the hand(s) acquired.? ? COMPARISON:? [facility], , HAND 3V LEFT, 09/09/2014, 12:13. ? FINDINGS:? ? Bones:? No acute fractures or dislocations.? Severe osteoarthritic changes are noted throughout left hand and wrist joints.? Diffuse osteopenia is seen.? 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 Carpal bones are normally aligned.? No suspicious bony lesions.? ? Soft tissues:? Significant soft tissue swelling over dorsal aspect of metacarpal bones and MCP joints are seen.? No suspicious soft tissue calcifications.? ? ? IMPRESSION:? Significant dorsal soft tissue swelling.? No acute fracture or dislocation.? 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 ? ? Dictated by: Nathan Brown M.D. on 12/11/2021 at 22:36 ? ? Approved by: Nathan Brown M.D. on 12/11/2021 at 22:37?? MDM Narrative Medical decision making narrative: X-ray shows no signs of a fracture. Physical exam is not consistent with cellulitis. There is no breaks in the skin. The swelling is actually not specifically located over a joint but over the dorsum of the hand. Not consistent with gout. It is also not definitive for a hematoma. I do suspect this is inflammation. No indication for antibiotics. I feel that a wrist splint is most likely not going to be helpful given the location of the issue. I did discuss this with the patient and her . They will continue with conservative measures and return to the emergency department for any new or worsening symptoms. Discharge Plan Departure Patient Disposition: Home Clinical Impression: Localized swelling on left hand Instructions: How To Perform RICE (Rest, Ice, Compress, Elevate) Activity Restrictions/Additional Instructions: I do recommend that you place ice over the area. Continue all of your medications as directed. Return to the emergency department for any new or worsening symptoms. Prescriptions: No Action cholecalciferol (vitamin D3) [Vitamin D3] 2,000 UNIT capsule 2,000 unit PO QDAY Qty: 0 0RF Eliquis 5 mg tablet 5 mg PO BID 90 Days Qty: 180 0RF Hold Instructions: change to 2.5 mg metoprolol tartrate 25 mg tablet 12.5 mg PO BID 90 Days Qty: 90 0RF celecoxib [Celebrex] 200 mg capsule 200 mg PO DAILY Qty: 90 5RF Referrals: Carlos Youngblood MD [Primary Care Provider] -
--- NOTE | 2021-12-11 22:06 | DI.RAD.S_ITS ---
PROCEDURE: XR HAND LT MIN 3V INDICATIONS: swollen dorsum L hand TECHNIQUE: 3 views of the hand(s) acquired. COMPARISON: [facility], , HAND 3V LEFT, 09/09/2014, 12:13. FINDINGS: Bones: No acute fractures or dislocations. Severe osteoarthritic changes are noted throughout left hand and wrist joints. Diffuse osteopenia is seen. 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 Carpal bones are normally aligned. No suspicious bony lesions. Soft tissues: Significant soft tissue swelling over dorsal aspect of metacarpal bones and MCP joints are seen. No suspicious soft tissue calcifications. IMPRESSION: Significant dorsal soft tissue swelling. No acute fracture or dislocation. 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 Dictated by: Nathan Brown M.D. on 12/11/2021 at 22:36 Approved by: Nathan Brown M.D. on 12/11/2021 at 22:37
[2021-12-11 23:12] VITALS: BP 132/69; PULSE 88; RESP 18; O2SAT 98
== END 2021-12-11 23:15 | disposition home or self-care (01) ==
PROVIDERS: Emergency Provider Emergency Medicine; PCP Student in an Organized Health Care Education/Training Program
DX: R22.32 Localized swelling, mass and lump, left upper limb (principal)
CPT/HCPCS: 73130; 99281; 99283

== ENCOUNTER 2021-12-31 08:02 | Emergency (ER) | payer MEDICARE, OTHER, SELFPAY ==
[2021-12-31] VITALS (19 sets, daily range): BP systolic 119–148; BP diastolic 65–86; PULSE 80–129; RESP 18–26; TEMP 36.8; O2SAT 94–100; BMI 16.6
--- NOTE | 2021-12-31 08:11 | ED_ITS ---
HPI - Abdominal Pain General Chief Complaint: Abdominal Pain Stated Complaint: Abd pain, 101 fever, constipation Time Seen by Provider: 12/31/21 08:11 History of Present Illness HPI narrative: 81F nonsmoker with noncontributory medical history presents with her in the chief complaint of constipation, generalized abdominal pain and decreased bowel movements for the past few days. She has had this problem off and on for quite some time and had been seen about 1 month ago for the same. She took a few doses of senna about 4 5 days ago and had large bowel movement had improved symptoms for a day or 2 but they have returned. She denies any change in diet. She has had no nausea or vomiting. She does state that her crampy abdominal pain seems to be worse when she moves and improves with rest. She has developed fever as high as 101.2 over the past 2-3 days. She had recently traveled with her to [place], she denies recent antibiotics, obvious bad food or exposure to ill persons. She feels generally pretty well and denies other symptoms such as headache, runny nose or sore throat, she has no chest pain, cough or shortness of breath. She denies dysuria, frequency or urgency but does mention she has had blood in her urine. She has a relatively recent diagnosis of atrial fibrillation and was recently started on Eliquis and metoprolol. Related Data Home Medications Medication Instructions Recorded Confirmed cholecalciferol (vitamin D3) 50 2,000 unit PO QDAY ##0 12/13/12 12/03/21 mcg (2,000 unit) capsule (Vitamin D3) Previous Rx's Medication Instructions Recorded celecoxib 200 mg capsule (Celebrex) 200 mg PO DAILY #90 caps 09/25/19 apixaban 5 mg tablet (Eliquis) 5 mg PO BID 90 days #180 tabs 11/26/21 metoprolol tartrate 25 mg tablet 12.5 mg PO BID 90 days #90 tabs 11/26/21 ciprofloxacin HCl 250 mg tablet 250 mg PO BID #10 tabs 12/31/21 (Cipro) Allergies Allergy/AdvReac Type Severity Reaction Status Date / Time No Known Drug Allergies Allergy Unverified 12/03/21 10:09 Review of Systems Review of Systems Narrative: GENERAL: See HPI HEENT: Denies sinus pain, ear pain, sore throat, difficulty swallowing, dizziness. RESPIRATORY: Denies dyspnea, cough, wheezing, hemoptysis, sputum. CARDIOVASCULAR: Denies chest pain, palpitations, orthopnea, edema, GASTROINTESTINAL: See HPI : Denies dysuria, frequency, incontinence, hematuria, urinary retention. MUSCULOSKELETAL: denies weakness, joint pain, or bony pain SKIN: Denies rash, skin lesions, or other NEUROLOGIC: Denies weakness, headache, numbness, change in speech, confusion, seizures, incoordination. PSYCHIATRIC: No concerning psychosocial issues. 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 Well-developed patient, in mild distress. HEAD: Atraumatic. Normocephalic. EYES: Pupils equal round and reactive. Extraocular motions intact. No scleral icterus. No injection or drainage. ENT: Nose without bleeding, purulent drainage. Throat without erythema, tonsillar hypertrophy or exudate. Airway patent. NECK: Trachea midline. Non tender CARDIOVASCULAR: Rapid and irregular rhythm without murmurs, gallops, or rubs. RESPIRATORY: Clear to auscultation. Breath sounds equal bilaterally. No wheezes, rales, or rhonchi. GASTROINTESTINAL: Abdomen soft, mild suprapubic tenderness, nondistended. Bowel sounds present but decreased EXTREMITIES: No edema or joint tenderness. BACK: Nontender without deformity or crepitance. No flank tenderness. NEURO: AOx3. SKIN: No rash or erythema of visible areas Initial Vital Signs Initial Vital Signs: Vital Signs Pulse Rate 122 H 12/31/21 08:10 Respiratory Rate 26 H 12/31/21 08:10 Pulse Oximetry 100 12/31/21 08:10 Course Orders Ordered: ED Orders 12/31/21 08:18 XR acute abdomen series Stat 12/31/21 08:30 Complete Blood Count AUTO DIFF Stat Comprehensive Metabolic Panel Stat Covid-19 + FLU A/B by PCR Stat Lactate (Lactic Acid) Stat Magnesium Stat Troponin & CK Cardiac Panel Stat 12/31/21 09:05 Ictotest Urine Stat Urinalysis and Microscopic Stat 12/31/21 09:52 IVP [CT abdomen pelvis wo/w con] Stat 12/31/21 11:08 Blood Culture Stat Discontinued Medications Sodium Chloride (Normal Saline 0.9%) 500 mls @ 1,000 mls/hr IV BOLUS ONE Stop: 12/31/21 08:46 Last Infusion: 12/31/21 09:05 Dose: 0 mls/hr Documented By: Admin: 12/31/21 08:30 Dose: 1,000 mls/hr Documented By: SHERRELL(2) Vital Signs Vital signs: Vital Signs - 8 hr 12/31/21 08:23 12/31/21 08:10 12/31/21 08:11 Temperature 98.3 F Pulse Rate 129 H 122 H Respiratory Rate 18 26 H Blood Pressure 143/66 H 143/66 H Pulse Oximetry 99 100 Oxygen Delivery Method Room Air 12/31/21 08:11 12/31/21 08:30 12/31/21 08:30 Temperature Pulse Rate 109 H 104 H Respiratory Rate 24 20 Blood Pressure 139/86 Pulse Oximetry 99 97 Oxygen Delivery Method 12/31/21 09:06 12/31/21 09:30 12/31/21 10:17 Temperature Pulse Rate 120 H 99 H 80 Respiratory Rate 21 Blood Pressure Pulse Oximetry 97 99 Oxygen Delivery Method 12/31/21 10:18 12/31/21 10:18 12/31/21 10:30 Temperature Pulse Rate 107 H 103 H Respiratory Rate 22 22 Blood Pressure 148/68 H Pulse Oximetry 94 98 Oxygen Delivery Method 12/31/21 10:31 12/31/21 10:31 12/31/21 11:00 Temperature Pulse Rate 110 H 112 H Respiratory Rate 22 22 Blood Pressure 131/68 Pulse Oximetry 97 98 Oxygen Delivery Method 12/31/21 11:26 12/31/21 11:26 12/31/21 11:30 Temperature Pulse Rate 103 H 105 H Respiratory Rate 24 21 Blood Pressure 119/75 Pulse Oximetry 98 98 Oxygen Delivery Method 12/31/21 11:40 12/31/21 11:40 12/31/21 12:00 Temperature Pulse Rate 104 H Respiratory Rate 21 Blood Pressure 141/65 H 126/68 Pulse Oximetry 98 Oxygen Delivery Method 12/31/21 12:00 12/31/21 12:20 12/31/21 12:20 Temperature Pulse Rate 103 H 108 H Respiratory Rate 21 20 Blood Pressure 131/67 Pulse Oximetry 98 98 Oxygen Delivery Method 12/31/21 12:30 12/31/21 12:39 12/31/21 12:40 Temperature Pulse Rate 107 H 108 H Respiratory Rate 22 Blood Pressure 121/69 Pulse Oximetry 98 98 Oxygen Delivery Method MDM - Abdominal Pain Lab Data Result diagrams: 12/31/21 08:30 12/31/21 08:30 Labs: Lab Results 12/31/21 12/31/21 12/31/21 Range/Units 08:30 08:30 08:30 WBC 9.1 (4.5-11.0) X10^3/uL RBC 3.72 L (4.0-5.2) X10^6/uL Hgb 10.8 L (12.0-16.0) g/dL Hct 31.8 L (36-46) % MCV 85.5 (80-100) fL MCH 29.1 (26-34) PG MCHC 34.0 (30-36) % RDW 15.0 H (11.6-14.8) % Plt Count 405 H (150-400) X10^3/uL Neut % (Auto) 84.0 H (50-75) % Lymph % (Auto) 4.0 L (25-40) % Smith % (Auto) 11.8 (3-14) % Eos % (Auto) 0.0 L (2-4) % Baso % (Auto) 0.2 (0-2) % Neut # (Auto) 7600 H (8475-6926) /uL Lymph # (Auto) 400 L (9974-6317) /uL Smith # (Auto) 1100 H (0-900) /uL Eos # (Auto) 0 (0-450) /uL Baso # (Auto) 0 (0-100) /uL Sodium 138 (137-145) mmol/L Potassium 4.0 (3.4-5.1) mmol/L Chloride 103 (98-107) mmol/L Carbon Dioxide 27 (22-32) mmol/L BUN 12 (7-17) mg/dL Creatinine 0.60 (0.52-1.04) mg/dL Estimated GFR > 60 (>60) mL/min BUN/Creatinine Ratio 20.0 (6-22) Glucose 155 H (80-110) mg/dL Lactate 1.8 (0.7-2.1) mmol/L Calcium 9.0 (8.4-10.2) mg/dL Magnesium 2.1 (1.6-2.3) mg/dL Total Bilirubin 1.2 (0.2-1.3) mg/dL AST 25 (14-36) IU/L ALT 15 (<35) IU/L Alkaline Phosphatase 84 (38-126) U/L Total Creatine Kinase 46 (30-135) U/L CK-MB (CK-2) TNP CK-MB (CK-2) Rel Index TNP Troponin I < 0.012 (0.01-0.034) ng/mL Total Protein 8.1 (6.3-8.2) g/dL Albumin 4.3 (3.5-5.0) g/dL Globulin 3.8 (1.7-4.1) g/dL Albumin/Globulin Ratio 1.1 (1.0-2.8) Urine Color Urine Appearance Urine pH (4.5-8.0) Ur Specific [place] (1.000-1.035) Urine Protein (Negative) Urine Glucose (UA) (Negative) g/dL Urine Ketones (NEGATIVE) Urine Occult Blood (Negative) Urine Nitrate (Negative) Urine Bilirubin (NEGATIVE) Ur Bilirubin Confirm (Negative) Urine Urobilinogen (0.2) E.U./dL Ur Leukocyte Esterase (NEGATIVE) Urine RBC (0-5/HPF) Urine WBC (0-5/HPF) Ur Squamous Epith Cells (0-5/HPF) Urine Bacteria (None) Urine Yeast (None) Ur Culture Indicated? SARS-CoV-2 (PCR) (Negative) Influenza A (RT-PCR) (NEGATIVE) Influenza B (RT-PCR) (NEGATIVE) 12/31/21 12/31/21 12/31/21 Range/Units 08:30 09:05 09:05 WBC (4.5-11.0) X10^3/uL RBC (4.0-5.2) X10^6/uL Hgb (12.0-16.0) g/dL Hct (36-46) % MCV (80-100) fL MCH (26-34) PG MCHC (30-36) % RDW (11.6-14.8) % Plt Count (150-400) X10^3/uL Neut % (Auto) (50-75) % Lymph % (Auto) (25-40) % Smith % (Auto) (3-14) % Eos % (Auto) (2-4) % Baso % (Auto) (0-2) % Neut # (Auto) (3406-6025) /uL Lymph # (Auto) (5966-9960) /uL Smith # (Auto) (0-900) /uL Eos # (Auto) (0-450) /uL Baso # (Auto) (0-100) /uL Sodium (137-145) mmol/L Potassium (3.4-5.1) mmol/L Chloride (98-107) mmol/L Carbon Dioxide (22-32) mmol/L BUN (7-17) mg/dL Creatinine (0.52-1.04) mg/dL Estimated GFR (>60) mL/min BUN/Creatinine Ratio (6-22) Glucose (80-110) mg/dL Lactate (0.7-2.1) mmol/L Calcium (8.4-10.2) mg/dL Magnesium (1.6-2.3) mg/dL Total Bilirubin (0.2-1.3) mg/dL AST (14-36) IU/L ALT (<35) IU/L Alkaline Phosphatase (38-126) U/L Total Creatine Kinase (30-135) U/L CK-MB (CK-2) CK-MB (CK-2) Rel Index Troponin I (0.01-0.034) ng/mL Total Protein (6.3-8.2) g/dL Albumin (3.5-5.0) g/dL Globulin (1.7-4.1) g/dL Albumin/Globulin Ratio (1.0-2.8) Urine Color Yellow Urine Appearance Sl cloudy Urine pH 5.0 (4.5-8.0) Ur Specific [place] 1.025 (1.000-1.035) Urine Protein 2+ H (Negative) Urine Glucose (UA) Negative (Negative) g/dL Urine Ketones Trace H (NEGATIVE) Urine Occult Blood 3+ H (Negative) Urine Nitrate Negative (Negative) Urine Bilirubin 1+ H (NEGATIVE) Ur Bilirubin Confirm Negative (Negative) Urine Urobilinogen 0.2 (0.2) E.U./dL Ur Leukocyte Esterase Trace H (NEGATIVE) Urine RBC 30-100/hpf H (0-5/HPF) Urine WBC 5-10/hpf H (0-5/HPF) Ur Squamous Epith Cells 10-30 /hpf H (0-5/HPF) Urine Bacteria Moderate (10-30) H (None) Urine Yeast 10-30/hpf H (None) Ur Culture Indicated? Cult not indicated SARS-CoV-2 (PCR) Negative (Negative) Influenza A (RT-PCR) Flu a negative (NEGATIVE) Influenza B (RT-PCR) Flu b negative (NEGATIVE) Point of care testing: Urine Dip Bedside Urine Glucose Negative Bedside Urine Bilirubin + 1 Bedside Urine Ketone - Negative Urine Specific [place] 1.025 Bedside Urine Occult Blood +++ Bedside Urine pH 6.0 Bedside Urine Protein + 30 Bedside Urine Urobilinogen 0.2 Bedside Urine Nitrite - Negative Bedside Urine Leukocytes +/- [address] scan - abdomen/pelvis: Radiologist's Impression: Close Abdomen/Pelvis CT (Signed) Joyce Webb - 12/31/21 Chest/Abdomen X-ray (Signed) Joyce Webb - 12/31/21 Hand X-Ray (Signed) Nathan Brown - 12/11/21 Chest/Abdomen X-ray (Signed) Talia Snyder - 11/21/21 Hip X-Ray (Signed) Joyce Webb - 05/14/21 Mammogram Screening (Signed) Anurag Wesley - 01/29/21 Mammogram Diagnostic (Signed) Gustavo Albright - 09/13/19 Breast Ultrasound (Signed) Gustavo Albright - 09/13/19 Bone Densitometry 09/13/19 DEXA Result 09/13/19 Mammogram Diagnostic (Signed) Madeline Agosto - 04/02/19 Breast Biopsy Ultrasound (Signed) Timothy Lyons - 03/12/19 Axilla US (Signed) Timothy Lyons - 03/12/19 Breast Ultrasound (Signed) Dakotah Medrano - 02/22/19 Mammogram, Additional Views (Signed) Dakotah Medrano - 02/22/19 Mammogram Screening (Signed) Madeline Agosto - 02/02/19 Launch?[address] [address] [address] Scan Report Signed Patient: Jaelyn Gomez MR#: [id number] : 1940 Acct:[id number] Age/Sex: 81 / F Date of Service: 12/31/21 Loc: ED Accession Number: [id number] ?? Procedure: CT abdomen pelvis wo/w con Ordering Provider: Khang Ortiz D.O. PROCEDURE:? CT ABDOMEN PELVIS WO/W CON ? INDICATIONS:? abdominal pain, hematuria ? TECHNIQUE:? Optional 5 mm thick noncontrast images acquired from the diaphragm to the symphy sis pubis.? After the administration of intravenous contrast, 5 mm thick images acquired from the diaphragm to the symphysis pubis after a 10-minute delay.? 2 mm thick coronal and sagittal reformats were then performed of the kidneys and ureters.? For radiation dose reduction, the following was used:? automated exposure control, adjustment of mA and/or kV according to patient size.? ? COMPARISON:? None. ? FINDINGS:? Image quality:? Portions of the lower pelvis are suboptimally evaluated secondar y to metallic streak artifact from hip arthroplasty. ? Lung bases:? Lung bases are clear.? Heart size is enlarged. ? Urinary system:? Both kidneys are normal in size, without hydronephrosis or nephrolithiasis on pre-contrast images.? No perinephric fat stranding.? There is normal bilateral renal enhancement.? Punctate low-attenuation bilateral renal foci, unchanged.? Renal calyces appear normal in morphology when filled with contrast.? Opacified portions of both ureters demonstrate normal caliber.? Bladder wall thickness is normal.? No calcified bladder stones.? ? Other solid organs:? Liver is normal in size.? Multiple low-attenuation subcentimeter hepatic foci are present.? The largest, measuring 8 mm, has Hounsfield units measuring 12.? Gallbladder is unremarkable .? Biliary system is non dilated.? Pancreas enhances normally.? Spleen is normal in size and enhancement.? No adrenal nodules.? ? Peritoneum and bowel:? Bowel loops demonstrate normal wall thickness and caliber.? No free fluid or air.? Colonic diverticula are present without associated inflammatory change. ? Nodes and vessels:? No retroperitoneal or mesenteric adenopathy by size criteria.? Aorta and inferior vena cava are normal in size.? ? Abdominal wall:? No ventral hernias.? ? Pelvis:? No pathologic free pelvic fluid.? No inguinal hernias or adenopathy.? ? Bones:? No suspicious bony lesions.? No vertebral body compression fractures.? IMPRESSION:? ? No renal, ureteral or bladder calculi.? No filling defects.? No visualized cause of hematuria. ? Diverticulosis. ? Low-attenuation hepatic foci with the larger focus most suggestive of simple cysts.? Statistically the smaller foci also represent cysts.? However, they are too small to definitively characterize.? Punctate low-attenuation renal foci also sta tistically representing small cysts.? They are unchanged but too small to definitively characterize. ? ? ? Dictated by: Joyce Webb M.D. on 12/31/2021 at 11:14 ? ? Approved by: Joyce Webb M.D. on 12/31/2021 at 11:23 ? MDM Narrative Medical decision making narrative: Patient presents with very reassuring history and physical exam as well as vital signs. Labs are unremarkable and imaging obtained to evaluate her essentially painless hematuria. There is no evidence of kidney stone, obstructive process or mass. Furthermore, abdominal contents are unremarkable and there is no evidence of obstruction, abscess or other significant finding. She does have a low-grade fever, swabs for COVID and flu were unremarkable, no pneumonia noted on chest x-ray. She does have some concern for the possibility of urine infection, given her discomfort overlying her bladder we discussed the treatment with a short course of antibiotics. She has appointments coming up to follow up with her primary care provider as well as a referral to Urology for the evaluation of her hematuria. Return precautions discussed questions have been answered to her apparent satisfaction Discharge Plan Departure Patient Disposition: Home Clinical Impression: Hematuria, Acute UTI, Lower abdominal pain Instructions: DI for Hematuria Activity Restrictions/Additional Instructions: *You have been diagnosed with [abdominal pain likely due to UTI and constipation] * As we discussed your history and physical exam as well as labs and imaging are very reassuring. There is no evidence of any severe diagnoses that would require a specific or immediate intervention. *What to do: *Please continue to take your regular medications as directed. [x ] New medication prescriptions sent to your pharmacy: [ [facility]] *Please follow up with your primary care provider in 2-3 days, call for an appointment. Let them know you were seen in the Emergency Department and that we ask that you be seen in follow up. We will electronically transmit a record of today's note if your PCP is in our system *Please consider a clear liquid diet for the next 24-48 hours and then slowly advance to regular as tolerated. Also, try to avoid alcohol, nicotine, caffeine, spicy, acidic or fatty foods as this may worsen your symptoms *If you do not have a primary care provider please contact the [facility] Resource line at [phone]. They will ask some questions about your medical history and help get you set up with a doctor in the community. *Return to Emergency Department if you should have any new, worsening or concern ing symptoms, such as [fever greater than 101 F, shaking chills, worsening pain, persistent vomiting or other bothersome symptoms] Prescriptions: New ciprofloxacin HCl [Cipro] 250 mg tablet 250 mg PO BID Qty: 10 0RF No Action cholecalciferol (vitamin D3) [Vitamin D3] 2,000 UNIT capsule 2,000 unit PO QDAY Qty: 0 Eliquis 5 mg tablet 5 mg PO BID 90 Days Qty: 180 0RF Hold Instructions: change to 2.5 mg metoprolol tartrate 25 mg tablet 12.5 mg PO BID 90 Days Qty: 90 0RF celecoxib [Celebrex] 200 mg capsule 200 mg PO DAILY Qty: 90 5RF Referrals: Carlos Youngblood MD [Primary Care Provider] - Visit Report Forms: Patient Portal/API
--- NOTE | 2021-12-31 08:18 | DI.RAD.S_ITS ---
PROCEDURE: XR ACUTE ABDOMEN SERIES INDICATIONS: Abdominal pain TECHNIQUE: One view chest and two views of the abdomen were acquired. COMPARISON: [facility], CT, CT ABDOMEN PELVIS WO/W CON, 12/31/2021, 10:01. [facility], CR, XR ACUTE ABDOMEN SERIES, 11/21/2021, 10:54. FINDINGS: Surgical changes and devices: Right hip arthroplasty. Severe left hip arthritic change. Chest: Lungs are clear lungs are hyperinflated suggestive of COPD.. Heart size is enlarged. No pleural effusions. No pneumoperitoneum. Abdomen: Bowel gas pattern is normal. No suspicious calcifications. Visualized solid organ contours appear normal. Bones: No suspicious bony lesions. Scoliotic curvature is present. IMPRESSION: No obstruction. Dictated by: Joyce Webb M.D. on 12/31/2021 at 10:22 Approved by: Joyce Webb M.D. on 12/31/2021 at 10:24
[2021-12-31] MEDS: SODIUM CHLORIDE 0.9% 500 ML 1000 ML IV (08:30)
[2021-12-31 09:07] LABS: Add Manual Diff / Slide Review NO; Basophils Absolute Auto 0 /uL (0-100); Basophils Percent Auto 0.2 % (0-2); Eosinophils Absolute Auto 0 /uL (0-450); Hematocrit 31.8 % (36-46); Hemoglobin 10.8 g/dL (12.0-16.0); Lymphocytes Absolute Auto 400 /uL (1100-4500); Mean Corpuscular Hemoglobin 29.1 PG (26-34); Mean Corpuscular Volume 85.5 fL (80-100); Monocytes Absolute Auto 1100 /uL (0-900); Monocytes Percent Auto 11.8 % (3-14); Neutrophils Absolute Auto 7600 /uL (1500-7000); Platelet Count 405 X10^3/uL (150-400); Red Blood Cell Count 3.72 X10^6/uL (4.0-5.2); White Blood Cell Count 9.1 X10^3/uL (4.5-11.0)
[2021-12-31 09:21] LABS: Alanine Aminotransferase 15 IU/L (<35); Albumin 4.3 g/dL (3.5-5.0); Albumin Globulin Ratio 1.1 (1.0-2.8); Alkaline Phosphatase 84 U/L (38-126); Aspartate Aminotransferase 25 IU/L (14-36); Bilirubin Total 1.2 mg/dL (0.2-1.3); Blood Urea Nitrogen 12 mg/dL (7-17); Carbon Dioxide 27 mmol/L (22-32); Chloride 103 mmol/L (98-107); Creatine Kinase 46 U/L (30-135); Estimated Glomerular Filt Rate > 60 mL/min (>60); Globulin 3.8 g/dL (1.7-4.1); Glucose 155 mg/dL (80-110); HEMOLYSIS 15 (0-50); Magnesium 2.1 mg/dL (1.6-2.3); Sodium 138 mmol/L (137-145); Total Protein 8.1 g/dL (6.3-8.2)
[2021-12-31 09:32] LABS: Troponin I < 0.012 ng/mL (0.01-0.034)
[2021-12-31 09:33] LABS: Appearance Urine UA SL CLOUDY; Bilirubin Urine UA 1+ (NEGATIVE); Color Urine UA YELLOW; Glucose Urine UA NEGATIVE (Negative); Ketones Urine UA TRACE (NEGATIVE); Leukocyte Esterase Urine UA TRACE (NEGATIVE); Nitrite Urine UA NEGATIVE (Negative); Occult Blood Urine UA 3+ (Negative); Protein Urine UA 2+ (Negative); Specific Gravity Urine UA 1.025 (1.000-1.035); Urobilinogen Urine UA 0.2 E.U./dL (0.2)
[2021-12-31 09:36] LABS: Ictotest Urine Negative (Negative)
[2021-12-31 09:43] LABS: Bacteria Urine Moderate (10-30); Culture Indicated Urine Cult Not Indicated; RBC Urine 30-100/HPF (0-5/HPF); Squamous Epithelial Cell Urine 10-30 /HPF (0-5/HPF); WBC Urine 5-10/HPF (0-5/HPF)
[2021-12-31 09:45] LABS: Lactate (Lactic Acid) 1.8 mmol/L (0.7-2.1)
--- NOTE | 2021-12-31 09:52 | DI.CT.S_ITS ---
PROCEDURE: CT ABDOMEN PELVIS WO/W CON INDICATIONS: abdominal pain, hematuria TECHNIQUE: Optional 5 mm thick noncontrast images acquired from the diaphragm to the symphysis pubis. After the administration of intravenous contrast, 5 mm thick images acquired from the diaphragm to the symphysis pubis after a 10-minute delay. 2 mm thick coronal and sagittal reformats were then performed of the kidneys and ureters. For radiation dose reduction, the following was used: automated exposure control, adjustment of mA and/or kV according to patient size. COMPARISON: None. FINDINGS: Image quality: Portions of the lower pelvis are suboptimally evaluated secondary to metallic streak artifact from hip arthroplasty. Lung bases: Lung bases are clear. Heart size is enlarged. Urinary system: Both kidneys are normal in size, without hydronephrosis or nephrolithiasis on pre-contrast images. No perinephric fat stranding. There is normal bilateral renal enhancement. Punctate low-attenuation bilateral renal foci, unchanged. Renal calyces appear normal in morphology when filled with contrast. Opacified portions of both ureters demonstrate normal caliber. Bladder wall thickness is normal. No calcified bladder stones. Other solid organs: Liver is normal in size. Multiple low-attenuation subcentimeter hepatic foci are present. The largest, measuring 8 mm, has Hounsfield units measuring 12. Gallbladder is unremarkable . Biliary system is non dilated. Pancreas enhances normally. Spleen is normal in size and enhancement. No adrenal nodules. Peritoneum and bowel: Bowel loops demonstrate normal wall thickness and caliber. No free fluid or air. Colonic diverticula are present without associated inflammatory change. Nodes and vessels: No retroperitoneal or mesenteric adenopathy by size criteria. Aorta and inferior vena cava are normal in size. Abdominal wall: No ventral hernias. Pelvis: No pathologic free pelvic fluid. No inguinal hernias or adenopathy. Bones: No suspicious bony lesions. No vertebral body compression fractures. IMPRESSION: No renal, ureteral or bladder calculi. No filling defects. No visualized cause of hematuria. Diverticulosis. Low-attenuation hepatic foci with the larger focus most suggestive of simple cysts. Statistically the smaller foci also represent cysts. However, they are too small to definitively characterize. Punctate low-attenuation renal foci also statistically representing small cysts. They are unchanged but too small to definitively characterize. Dictated by: Joyce Webb M.D. on 12/31/2021 at 11:14 Approved by: Joyce Webb M.D. on 12/31/2021 at 11:23
[2021-12-31 10:10] LABS: Influenza A - CEPHEID Flu A NEGATIVE (NEGATIVE); Influenza B - CEPHEID Flu B NEGATIVE (NEGATIVE)
[2021-12-31 10:28] LABS: COVID-19 CEPHEID PCR (VTM/NP) Negative (Negative)
== END 2021-12-31 12:44 | disposition home or self-care (01) ==
PROVIDERS: Emergency Provider Emergency Medicine; PCP Student in an Organized Health Care Education/Training Program
DX: N39.0 Urinary tract infection, site not specified (principal); R31.9 Hematuria, unspecified; R10.30 Lower abdominal pain, unspecified; R50.9 Fever, unspecified; Z79.01 Long term (current) use of anticoagulants; Z20.822 Contact with and (suspected) exposure to COVID-19; I48.91 Unspecified atrial fibrillation
CPT/HCPCS: 36415; 74022; 74178; 80053; 81001; 81003; 82550; 83605; 83735; 84484; 85025; 87040; 87635; 93005; 93010; 99284; C9803; Q9967

== ENCOUNTER → 2022-01-25 07:05 | Outpatient (CLI) | payer MEDICARE, OTHER, SELFPAY ==
[2022-01-25 09:07] LABS: Cholesterol 163 mg/dL (140-199); HDL Cholesterol 54 mg/dL (40-60); LDL Cholesterol Calculated 96 mg/dL (<100); Triglycerides 65 mg/dL (35-150)
[2022-01-25 09:26] LABS: Free T4, Direct Thyroxine 0.85 ng/dL (0.78-2.19)
[2022-01-25 12:09] LABS: Thyroid Stimulating Hormone 1.88 uIU/mL (0.47-4.68)
== END ==
PROVIDERS: PCP Student in an Organized Health Care Education/Training Program; Referring Provider Internal Medicine Cardiovascular Disease; Visit Provider Internal Medicine Cardiovascular Disease
DX: Z13.220 Encounter for screening for lipoid disorders (principal); I48.91 Unspecified atrial fibrillation
CPT/HCPCS: 36415; 80061; 84439; 84443

== ENCOUNTER → 2022-02-10 15:59 | Outpatient (CLI) | payer MEDICARE, OTHER, SELFPAY ==
--- NOTE | 2022-02-10 16:02 | DI.RAD.S_ITS ---
PROCEDURE: XR LUMBAR SPINE 2-3V INDICATIONS: Lumbar spine pain. Traumatic impact TECHNIQUE: 3 views of the lumbar spine were acquired. COMPARISON: [facility], CT, CT ABDOMEN PELVIS WO/W CON, 12/31/2021, 10:01. FINDINGS: Bones: 5 [id number] vertebrae are present. Generalized osteopenia. Mild dextroconvex curvature of the lumbar spine. Mild compression deformity of the L1 vertebra. Multilevel disc space narrowing degenerative endplate changes as well as facet hypertrophy are seen throughout the lumbar spine. No suspicious bony lesions. Soft tissues: Overlying bowel gas pattern is normal. No suspicious soft tissue calcifications. IMPRESSION: 1. Mild L1 compression fracture appears to be new when compared to the prior CT from 12/31/2021. Recommend correlation for point tenderness. 2. Dextroconvex curvature and multilevel spondylosis. Dictated by: Roger Dunne M.D. on 02/10/2022 at 17:04 Approved by: Roger Dunne M.D. on 02/10/2022 at 17:07
== END ==
PROVIDERS: PCP Student in an Organized Health Care Education/Training Program; Referring Provider Student in an Organized Health Care Education/Training Program; Visit Provider Student in an Organized Health Care Education/Training Program
DX: M47.816 Spondylosis without myelopathy or radiculopathy, lumbar region (principal); M43.9 Deforming dorsopathy, unspecified; M48.56XA Collapsed vertebra, not elsewhere classified, lumbar region, initial encounter for fracture; M54.50 Low back pain, unspecified
CPT/HCPCS: 72100

== ENCOUNTER → 2022-02-24 13:53 | Outpatient (CLI) | payer MEDICARE, OTHER, SELFPAY ==
--- NOTE | 2022-02-24 | DI.MG.S_ITS ---
BILATERAL DIGITAL SCREENING MAMMOGRAM 3D/2D WITH CAD: 02/24/2022 CLINICAL: Routine screening. Family history of breast cancer. Comparison is made to exams dated: 01/29/2021 mammogram, 02/02/2019 mammogram, and 09/26/2017 mammogram - [facility]. The tissue of both breasts is heterogeneously dense. This may lower the sensitivity of mammography. Current study was also evaluated with a Computer Aided Detection (CAD) system. No significant masses, calcifications, or other findings are seen in either breast. There has been no significant interval change. IMPRESSION: NEGATIVE There is no mammographic evidence of malignancy. A 1 year screening mammogram is recommended. Based on the Tyrer Cuzick model (a risk assessment model) the patient's lifetime risk is 1.3% and her 10 year risk is 0.0%. According to the ACR, ACS, and NCCN guidelines, an annual breast MRI exam along with mammogram is recommended if the patient's lifetime risk is 20% or greater. This exam was interpreted at Station ID: [id number]. NOTE: For mammograms, a report in lay terms will be sent to the patient. Approximately 15% of breast malignancies will not be visualized mammographically. In the management of a palpable breast mass, a negative mammogram must not discourage biopsy of a clinically suspicious lesion. Electronically Signed By: Anurag Wesley M.D., jr/román:02/24/2022 15:31:39 copy to: Luiz Robertson letter sent: Normal Exam ACR BI-RADS Category 1: Negative [id number]
== END ==
PROVIDERS: PCP Student in an Organized Health Care Education/Training Program; Referring Provider Student in an Organized Health Care Education/Training Program; Visit Provider Student in an Organized Health Care Education/Training Program
DX: Z12.31 Encounter for screening mammogram for malignant neoplasm of breast (principal); Z80.3 Family history of malignant neoplasm of breast
CPT/HCPCS: 77063; 77067

== ENCOUNTER → 2022-03-26 10:43 | Outpatient (CLI) | payer MEDICARE, OTHER, SELFPAY ==
[2022-03-26 12:09] LABS: COVID19 -Nasal RAPID Negative (Negative)
--- NOTE | 2022-03-26 12:53 | DI.ECHO.S_ITS ---
Interpretation Summary The ejection fraction is estimated to be 55-60%. Diastolic function could not be accurately assessed due to atrial fibrillation. The right ventricle is normal in size and function. Both atria are severely dilated. There is moderate mitral regurgitation. There is mild aortic regurgitation. There is mild aortic stenosis. There is moderate tricuspid regurgitation. The right ventricular systolic pressure is estimated to be at least 37 mmHg based on an estimated right atrial pressure of 8 mm Hg. The ascending aorta is mildly enlarged. Compared to the prior study dated 06/06/2018, there is a mild decrease in ejection fraction which remains normal however. The aortic valve now appears mildly stenotic. There is no clear evidence of mitral valve prolapse on the current study. Procedure: A two-dimensional transthoracic echocardiogram with color flow and Doppler was performed. The study quality was technically difficult. Comparison is made with the echocardiogram of 06/06/2018. Left Ventricle: The left ventricle is normal in size and wall thickness. Left ventricular systolic function is normal. The ejection fraction is estimated to be 55-60%. There are no focal wall motion abnormalities. Diastolic function could not be accurately assessed due to atrial fibrillation. Right Ventricle: The right ventricle is normal in size and function. Atria: Both atria are severely dilated. The interatrial septum grossly appears intact with no obvious evidence for an atrial septal defect. Mitral Valve: There is borderline mitral valve prolapse. There is moderate mitral regurgitation. Aortic Valve: The aortic valve is mildly calcified. There is mild aortic stenosis. The aortic valve mean gradient is 10 mmHg. There is mild aortic regurgitation. Tricuspid Valve: The tricuspid valve is normal in structure and function. There is moderate tricuspid regurgitation. The right ventricular systolic pressure is estimated to be at least 37 mmHg based on an estimated right atrial pressure of 8 mm Hg. Pulmonic Valve: The pulmonic valve is normal in structure and function. There is trace pulmonic regurgitation. Great Vessels: The aortic root is normal size. The ascending aorta is mildly enlarged. The IVC is dilated (diameter is greater than 2.1 cm) yet it collapses greater than 50% with a sniff. This suggests a right atrial pressure of 8 mm Hg. Pericardium/ Pleura There is no pericardial effusion. There is no pleural effusion. MMode/2D Measurements & Calculations LVIDd: 4.4 cm LVOT diam: 2.0 cm LVIDs: 3.0 cm Ao root diam: 3.1 cm FS: 31.8 % asc Aorta Diam: 3.7 cm IVSd: 0.90 cm LVPWd: 0.80 cm LV burks. diameter/BSA (cm/m^2): 3.0 LV sys. diameter/BSA (cm/m^2): 2.0 LA dimension: 3.1 cm RA long axis: 6.3 cm LA A2 area: 22.2 cm2 LA A4 area: 24.9 cm2 LA length (vol): 6.3 cm LA vol: 75.0 ml LA vol index: 51.0 ml/m2 TAPSE_phl: 2.0 cm Doppler Measurements & Calculations Ao V2 max: 200.5 cm/sec LVOT Max Enmanuel: 75.1 cm/sec Ao V2 mean: 147.5 cm/sec LV V1 max P.3 mmHg Ao max P.0 mmHg LV V1 VTI: 15.4 cm Ao mean P.5 mmHg SARAH(I,D): 1.3 cm2 Ao V2 VTI: 36.8 cm SARAH(V,D): 1.2 cm2 sev ratio: 0.42 SARAH indexed to BSA (cm^2/m^2): 0.90 TR max enmanuel: 269.0 cm/sec SV(LVOT): 48.4 ml TR max P.9 mmHg AV VR_phl: 0.37 SARAH(VTI)/BSA_phl: 0.89 Reading Physician:03:45 PM
--- NOTE | 2022-03-26 18:53 | DI.NM.S_ITS ---
DATE OF SERVICE: PROCEDURE: Pharmacological perfusion study. INDICATION: Atrial fibrillation, shortness of breath. RADIOPHARMACEUTICAL: 25.3 mCi technetium-99m Myoview IV was injected at stress and 10.8 mCi technetium-99m Myoview IV was injected at rest. CARDIAC STRESS: The patient initially attempted walking on treadmill. The patient walked on treadmill for about 3 minutes and 6 seconds. However, she developed very fast heart rate as she was in atrial fibrillation to begin with. Within first stage, heart rate reached up to 196 beats per minute. Hence, exercise stress test was discontinued and the patient was given IV Lexiscan once heart rate reached less than 100 beats per minute. Prior to exercise, the patient has atrial fibrillation with controlled ventricular rate with nonspecific ST-T changes and some PVCs. During stress, there were no convincing new ischemic changes seen. The patient continued to have some isolated PVCs without any ventricular tachycardia. No obvious chest pain or significant shortness of breath. The patient received IV Lexiscan as per protocol. Resting blood pressure was 150/80, and during exercise maximum blood pressure 170/100 mmHg. RAW DATA: There is increased subdiaphragmatic activity. Heart is almost vertical. GATED STUDY: Resting LV ejection fraction 66 percent and stress LV ejection fraction seconds 71 percent without any obvious wall motion abnormalities. Resting end-diastolic volume 71 mL. TID ratio 1.03. Lung/heart ratio 0.34. MYOCARDIAL PERFUSION: Stress supine, resting supine and stress prone images were compared to each other. Resting supine images revealed small size, mildly decreased perfusion of basal anterior wall. Stress supine images revealed mildly decreased perfusion of inferoapex, which got improved during stress prone images, suggestive of tissue attenuation artifact. No convincing ischemia or infarction pattern seen during stress prone images. CONCLUSION: I will call this study likely a normal myocardial perfusion study with evidence of tissue attenuation artifact, which got resolved during stress prone images. The stress prone images did not reveal any convincing ischemia or infarction pattern. The patient has baseline atrial fibrillation. However, during first stage of exercise, patient had heart rate up to 196 beats per minute with fast ventricular rate. Consider better rate control. Left ventricular function is preserved. Overall low-risk myocardial perfusion scan. Jaelyn Gomez - MADDIE/mendez/NAM doc#: [id number]/job#: [id number] dd: 03/26/2022 17:19:00 dt: 03/26/2022 18:36:00 DICTATING MD/COPIES TO: Vibha Stone MD COPIES MNE: TANVI;
== END ==
PROVIDERS: PCP Student in an Organized Health Care Education/Training Program; Referring Provider Internal Medicine Cardiovascular Disease; Visit Provider Internal Medicine Cardiovascular Disease
DX: R06.00 Dyspnea, unspecified (principal); Z20.822 Contact with and (suspected) exposure to COVID-19; I48.91 Unspecified atrial fibrillation
CPT/HCPCS: 78452; 87635; 93017; 93306; A9502; J2785

== ENCOUNTER → 2022-09-15 12:27 | Outpatient (CLI) | payer MEDICARE, OTHER, SELFPAY ==
--- NOTE | 2022-09-15 | DI.ECHO.S_ITS ---
[facility] +---------+ [facility] +---------+ : : [address] [place] [address] : : : : [id number] : : : : Phone: [phone]+ Echocardiogram Report + + :Name: NANCY MOTT Study Date: 09/15/2022 Height: 64 in : [facility] ReadingLocation: Weight: 105 lb : : Gender: Female BSA: 1.5 m2 : :: 1940 Age: 82 yrs BP: 118/78 mmHg: :Reason For Study: DYSPNEA : :Ordering Physician: THOMAS, : :ADRIANA Linder Performed By: Cara Weaver : :Referring: ADRIANA PEDERSON : + + Interpretation Summary The ejection fraction is estimated to be 55-60%. Diastolic function could not be accurately assessed due to atrial fibrillation. The right ventricle is mildly dilated. The right ventricular systolic function is normal. There is severe biatrial enlargement. There is moderate mitral regurgitation. There is mild aortic stenosis. There is mild aortic regurgitation. There is moderate tricuspid regurgitation. The right ventricular systolic pressure is estimated to be at least 50 mmHg based on an estimated right atrial pressure of 8 mm Hg. The ascending aorta is mildly enlarged. Compared to the prior study dated 03/26/2022, the RV is now mildly dilated and PASP has increased. Procedure: A two-dimensional transthoracic echocardiogram with color flow and Doppler was performed. The study quality was technically adequate. Comparison is made with the echocardiogram of 03/26/2022. The patient was in atrial fibrillation with heart rates between 79-117 bpm during the exam. Left Ventricle: The left ventricle is normal in size and wall thickness. The ejection fraction is estimated to be 55-60%. Diastolic function could not be accurately assessed due to atrial fibrillation. Right Ventricle: The right ventricle is mildly dilated. The right ventricular systolic function is normal. Atria: There is severe biatrial enlargement. There is no Doppler evidence for an interatrial shunt. Mitral Valve: There is a flat closure plane of the the mitral valve leaflets. There is borderline mitral valve prolapse. There is moderate mitral regurgitation. There are multiple regurgitant jets present. Aortic Valve: The aortic valve is mildly calcified. There is moderate aortic valve sclerosis. The peak aortic velocity is 2.0 m/sec. The aortic valve mean gradient is 9 mmHg. There is mild aortic stenosis. There is mild aortic regurgitation. Tricuspid Valve: The tricuspid valve leaflets are thin and pliable. There is moderate tricuspid regurgitation. Multiple regurgitant jets. The right ventricular systolic pressure is estimated to be at least 50 mmHg based on an estimated right atrial pressure of 8 mm Hg. Pulmonic Valve: The pulmonic valve is not well seen, but is grossly normal. There is mild pulmonic regurgitation. Great Vessels: The aortic root is normal size. The ascending aorta is mildly enlarged. The IVC is dilated (diameter is greater than 2.1 cm) yet it collapses greater than 50% with a sniff. This suggests a right atrial pressure of 8 mm Hg. Pericardium/ Pleura There is no pericardial effusion. There is no pleural effusion. MMode/2D Measurements & Calculations LVIDd: 4.5 cm LVOT diam: 2.1 cm LVIDs: 2.7 cm Ao root diam: 3.0 cm FS: 39.3 % asc Aorta Diam: 3.7 cm EPSS: 0.38 cm Ao Arch Diam (Prox Trans): 2.3 cm IVSd: 0.74 cm LVPWd: 0.75 cm LV burks. diameter/BSA (cm/m^2): 3.0 LV sys. diameter/BSA (cm/m^2): 1.8 LA A2 area: 20.1 cm2 RA long axis: 5.6 cm LA A4 area: 20.5 cm2 RA area: 22.4 cm2 LA length (vol): 5.5 cm RA vol: 76.5 ml LA vol: 62.9 ml RA : 51.4 ml/m2 LA vol index: 42.3 ml/m2 IVC diam: 2.4 cm RVD1 (basal): 3.4 cm RVD2 (mid): 3.0 cm TAPSE: 1.7 cm Doppler Measurements & Calculations Ao V2 max: 201.9 cm/sec LVOT Max Enmanuel: 66.4 cm/sec Ao V2 mean: 141.0 cm/sec LV V1 max P.8 mmHg Ao max P.5 mmHg LV V1 VTI: 13.5 cm Ao mean P.8 mmHg SARAH(I,D): 1.2 cm2 Ao V2 VTI: 37.5 cm SARAH(V,D): 1.1 cm2 sev ratio: 0.36 SARAH indexed to BSA (cm^2/m^2): 0.83 AI P1/2t: 547.6 msec AI dec slope: 221.1 cm/sec2 MV E max enmanuel: 112.5 cm/sec TR max enmanuel: 325.7 cm/sec MV A max enmanuel: 2.9 cm/sec TR max P.4 mmHg MV E/A: 39.1 PA V2 max: 78.5 cm/sec Med Peak E' Enmanuel: 11.9 cm/sec PA V2 mean: 54.1 cm/sec E/E' med: 9.4 PA mean P.3 mmHg Lat Peak E' Enmanuel: 3.4 cm/sec PA pr(Accel): 43.0 mmHg E/E' lat: 32.8 E/e' average: 21.1 MV dec time: 0.20 sec MVA(VTI): 1.4 cm2 MV V2 mean: 126.5 cm/sec SV(LVOT): 46.4 ml MV mean P.0 mmHg MV V2 VTI: 33.6 cm Reading Physician:05:43 PM
== END ==
PROVIDERS: PCP Student in an Organized Health Care Education/Training Program; Referring Provider Internal Medicine Cardiovascular Disease; Visit Provider Internal Medicine Cardiovascular Disease
DX: R06.09 Other forms of dyspnea (principal); I08.3 Combined rheumatic disorders of mitral, aortic and tricuspid valves
CPT/HCPCS: 93306

== ENCOUNTER → 2022-09-26 11:08 | Outpatient (CLI) | payer MEDICARE, OTHER, SELFPAY | PROVIDERS: PCP Student in an Organized Health Care Education/Training Program; Visit Provider Physician Assistant | DX: R30.0 Dysuria (principal) | CPT/HCPCS: 87077; 87086; 87186 ==

== ENCOUNTER → 2022-11-17 12:33 | Outpatient (CLI) | payer MEDICARE, OTHER, SELFPAY ==
--- NOTE | 2022-11-17 13:36 | DI.MRI.S_ITS ---
PROCEDURE: MR HAND LT WO CON INDICATIONS: PAIN IN LEFT HAND TECHNIQUE: Noncontrast coronal T1 spin echo and T2 fast spin echo with fat saturation, axial proton density fast spin echo and T2 fast spin echo with fat saturation, sagittal T1 spin echo and STIR through the hand and fingers. COMPARISON: [facility] [place], CR, XR HAND 3+ VIEWS LEFT, 11/09/2022, 9:24. FINDINGS: Image quality: Excellent. Bones: Osteoarthritic changes are noted throughout left hand and wrist joints with extensive joint space narrowing, subchondral sclerosis and marginal osteophyte formation most notably involving 1st TMT joint. Numerous subcortical cystic areas are seen scattered in distal radius, ulnar, throughout carpal bones, and at 1st and 2nd metacarpal bases, 2nd , 3rd and 5th metacarpal heads, of 1st proximal phalangeal head and adjacent to 2nd PIP joint most notably involving distal ulna. No acute fracture or dislocation. No suspicious bony lesions. No evidence of avascular necrosis. Interphalangeal joint(s): The accessory and proper collateral ligaments appear intact. The volar plate demonstrates normal morphology. The extensor central slips appear intact on sagittal images. Metacarpophalangeal joint(s): The accessory and proper collateral ligaments appear intact, as well as the volar plate and adjacent deep transverse metacarpal ligaments. The sagittal bands of the extensor rodriguez appear normal. Extensor apparatus: The central slips insert normally on the middle phalangeal base. The conjoint and terminal tendons insert normally on the distal phalangeal bases. More proximal portions of the extensor tendons also appear normal. Flexor apparatus: The flexor digitorum superficialis and profundus tendons both appear intact. All annular and cruciform pulleys appear intact, without adjacent soft tissue edema. Soft tissues: Visualized muscles demonstrate normal bulk and internal signal. No intramuscular masses identified. No ganglion cysts. IMPRESSION: 1. 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 No acute fracture or dislocation. 2. Subcortical cystic areas scattered in distal radius, ulnar, carpal bones, metacarpal bones and phalanges as described in detail above concerning for erosion secondary to inflammatory arthropathy suggest clinical correlation. 3. Extensor and flexor tendons are grossly intact. 4. No gross ligamentous abnormalities are seen left hand. Dictated by: Nathan Brown M.D. on 11/17/2022 at 15:26 Approved by: Nathan Brown M.D. on 11/17/2022 at 15:31
== END ==
PROVIDERS: PCP Student in an Organized Health Care Education/Training Program; Referring Provider Orthopaedic Surgery; Visit Provider Orthopaedic Surgery
DX: M18.12 Unilateral primary osteoarthritis of first carpometacarpal joint, left hand (principal); M19.042 Primary osteoarthritis, left hand; M19.032 Primary osteoarthritis, left wrist; M79.642 Pain in left hand
CPT/HCPCS: 73218

== ENCOUNTER 2022-11-21 05:18 | Emergency (ER) | payer MEDICARE, OTHER, SELFPAY ==
[2022-11-21] VITALS (20 sets, daily range): BP systolic 86–126; BP diastolic 50–95; PULSE 76–142; RESP 20–38; TEMP 36.7; O2SAT 96–99; BMI 17.8
--- NOTE | 2022-11-21 05:21 | ED_ITS ---
HPI - Chest Pain <Khang Ortiz DO - Last Filed: 11/22/22 03:09> General Chief Complaint: Chest Pain Stated Complaint: CHEST PAIN Time Seen by Provider: 11/21/22 05:21 History of Present Illness HPI narrative: 82-year-old female nonsmoker with history of atrial fibrillation on apixaban presents with her in the chief complaint of central chest pressure and heaviness that started at about midnight today. She states she feels her heart racing and feels a bit short of breath. She denies any obvious provocation, palliation or radiation of her symptoms. She denies runny nose, sore throat or cough. She is had no fever or chills. She denies any change in her medications or dosing. She denies missing any doses of her medications. She states that she recently had a 7 day monitor and they told her that she is always in atrial fibrillation. She denies nausea or vomiting but has had some increased belching. Patient states her resting HR is generally 90-100. Related Data Home Medications Medication Instructions Recorded Confirmed cholecalciferol (vitamin D3) 50 2,000 unit PO QDAY ##0 12/13/12 09/26/22 mcg (2,000 unit) capsule (Vitamin D3) apixaban 2.5 mg tablet 2.5 mg PO BID 04/26/22 09/26/22 metoprolol tartrate 25 mg tablet 12.5 mg PO BID 06/07/22 09/26/22 Previous Rx's Medication Instructions Recorded celecoxib 200 mg capsule (Celebrex) 200 mg PO DAILY #90 caps 09/25/19 sulfamethoxazole 800 1 tab PO BID #14 tabs 09/26/22 mg-trimethoprim 160 mg tablet (Bactrim DS) furosemide 20 mg tablet (Lasix) 20 mg PO DAILY #20 tabs 11/21/22 Allergies Allergy/AdvReac Type Severity Reaction Status Date / Time No Known Drug Allergies Allergy Unverified 09/26/22 10:24 Review of Systems <Khang Ortiz DO - Last Filed: 11/22/22 03:09> Review of Systems Narrative: GENERAL: Denies chills, fatigue, malaise, fever, sweats. HEENT: Denies sinus pain, ear pain, sore throat, difficulty swallowing, dizziness. RESPIRATORY: Denies dyspnea, cough, wheezing, hemoptysis, sputum. CARDIOVASCULAR: See HPI GASTROINTESTINAL: see HPI : Denies dysuria, frequency, incontinence, hematuria, urinary retention. MUSCULOSKELETAL: denies weakness, joint pain, or bony pain SKIN: Denies rash, skin lesions, or other NEUROLOGIC: Denies weakness, headache, numbness, change in speech, confusion, seizures, incoordination. PSYCHIATRIC: No concerning psychosocial issues. 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 Well-developed patient, in mild distress. HEAD: Atraumatic. Normocephalic. EYES: Pupils equal round and reactive. Extraocular motions intact. No scleral icterus. No injection or drainage. ENT: Nose without bleeding, purulent drainage. Throat without erythema, tonsillar hypertrophy or exudate. Airway patent. NECK: Trachea midline. Non tender CARDIOVASCULAR: Tachycardic and irregular rhythm without murmurs, gallops, or rubs. RESPIRATORY: Clear to auscultation. Breath sounds equal bilaterally. No wheezes, rales, or rhonchi. GASTROINTESTINAL: Abdomen soft, non-tender, nondistended. EXTREMITIES: No edema or joint tenderness. BACK: Nontender without deformity or crepitance. No flank tenderness. NEURO: AOx3. SKIN: No rash or erythema of visible areas Initial Vital Signs Initial Vital Signs: Vital Signs Temperature 98.1 F 11/21/22 05:22 Pulse Rate 135 H 11/21/22 05:22 Respiratory Rate 20 11/21/22 05:22 Blood Pressure 126/95 H 11/21/22 05:22 Pulse Oximetry 99 11/21/22 05:22 Oxygen Delivery Method Room Air 11/21/22 05:22 <Bina Trevino, DO - Last Filed: 11/21/22 19:15> Initial Vital Signs Initial Vital Signs: Vital Signs Temperature 98.1 F 11/21/22 05:22 Pulse Rate 135 H 11/21/22 05:22 Respiratory Rate 20 11/21/22 05:22 Blood Pressure 126/95 H 11/21/22 05:22 Pulse Oximetry 99 11/21/22 05:22 Oxygen Delivery Method Room Air 11/21/22 05:22 Course <Khang Ortiz, DO - Last Filed: 11/22/22 03:09> Orders Ordered: Discontinued Medications Aspirin (Aspirin 81 Mg Chew Tab) 324 mg PO NOW ONE Stop: 11/21/22 05:23 Last Admin: 11/21/22 05:38 Dose: 324 mg Documented By: JO Sodium Chloride (Normal Saline 0.9%) 1,000 mls @ 150 mls/hr IV CONT ANAI Last Infusion: 11/21/22 09:00 Dose: 0 mls/hr Documented By: Admin: 11/21/22 05:38 Dose: 150 mls/hr Documented By: JO Metoprolol Tartrate (Metoprolol Ir 25 Mg Tablet) 25 mg PO NOW ONE Stop: 11/21/22 05:46 Last Admin: 11/21/22 05:51 Dose: 25 mg Documented By: SB Potassium Chloride (Potassium Chloride 20 Meq/15 Ml Udc) 40 meq PO NOW ONE Stop: 11/21/22 06:07 Last Admin: 11/21/22 06:15 Dose: 40 meq Documented By: SB Consultations Consultation #1: 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 Pederson. She is unable to access EMR at this time, but recommends rate control, though would advocate for cardioversion is she becomes unstable Vital Signs Vital signs: Vital Signs - 8 hr 11/21/22 05:22 11/21/22 06:19 11/21/22 05:26 Temperature 98.1 F Pulse Rate 135 H 97 H 142 H Respiratory Rate 20 27 H Blood Pressure 126/95 H 126/87 Pulse Oximetry 99 96 Oxygen Delivery Method Room Air 11/21/22 05:27 11/21/22 05:27 11/21/22 05:30 Temperature Pulse Rate 136 H 138 H Respiratory Rate 24 21 Blood Pressure 126/95 H Pulse Oximetry 98 98 Oxygen Delivery Method Room Air 11/21/22 05:54 11/21/22 05:54 11/21/22 06:00 Temperature Pulse Rate 94 H Respiratory Rate 30 H Blood Pressure 126/60 111/56 L Pulse Oximetry 97 Oxygen Delivery Method 11/21/22 06:00 11/21/22 06:18 11/21/22 06:18 Temperature Pulse Rate 90 105 H Respiratory Rate 25 H 33 H Blood Pressure 120/68 Pulse Oximetry 96 97 Oxygen Delivery Method 11/21/22 06:30 11/21/22 06:30 11/21/22 07:00 Temperature Pulse Rate 88 Respiratory Rate 22 Blood Pressure 102/57 L 101/59 L Pulse Oximetry 96 Oxygen Delivery Method 11/21/22 07:00 11/21/22 07:30 11/21/22 07:30 Temperature Pulse Rate 81 76 Respiratory Rate 25 H 23 Blood Pressure 86/50 L Pulse Oximetry 96 96 Oxygen Delivery Method 11/21/22 07:32 11/21/22 07:32 11/21/22 08:00 Temperature Pulse Rate 77 Respiratory Rate 36 H Blood Pressure 96/53 L 101/55 L Pulse Oximetry 98 Oxygen Delivery Method 11/21/22 08:00 11/21/22 08:26 11/21/22 08:27 Temperature Pulse Rate 78 82 Respiratory Rate 26 H 33 H Blood Pressure 118/56 L Pulse Oximetry 97 99 Oxygen Delivery Method 11/21/22 08:38 11/21/22 09:00 11/21/22 09:00 Temperature Pulse Rate 89 83 Respiratory Rate 25 H 38 H Blood Pressure 100/57 L Pulse Oximetry 97 Oxygen Delivery Method 11/21/22 09:30 11/21/22 09:30 Temperature Pulse Rate 78 Respiratory Rate 21 Blood Pressure 95/57 L Pulse Oximetry 98 Oxygen Delivery Method Room Air <Bina Trevino, - Last Filed: 11/21/22 19:15> Orders Ordered: Discontinued Medications Aspirin (Aspirin 81 Mg Chew Tab) 324 mg PO NOW ONE Stop: 11/21/22 05:23 Last Admin: 11/21/22 05:38 Dose: 324 mg Documented By: GC Sodium Chloride (Normal Saline 0.9%) 1,000 mls @ 150 mls/hr IV CONT ANAI Last Infusion: 11/21/22 09:00 Dose: 0 mls/hr Documented By: Admin: 11/21/22 05:38 Dose: 150 mls/hr Documented By: JO Metoprolol Tartrate (Metoprolol Ir 25 Mg Tablet) 25 mg PO NOW ONE Stop: 11/21/22 05:46 Last Admin: 11/21/22 05:51 Dose: 25 mg Documented By: MARCIO Potassium Chloride (Potassium Chloride 20 Meq/15 Ml Udc) 40 meq PO NOW ONE Stop: 11/21/22 06:07 Last Admin: 11/21/22 06:15 Dose: 40 meq Documented By: MACRIO Vital Signs Vital signs: Vital Signs - 8 hr 11/21/22 05:22 11/21/22 06:19 11/21/22 05:26 Temperature 98.1 F Pulse Rate 135 H 97 H 142 H Respiratory Rate 20 27 H Blood Pressure 126/95 H 126/87 Pulse Oximetry 99 96 Oxygen Delivery Method Room Air 11/21/22 05:27 11/21/22 05:27 11/21/22 05:30 Temperature Pulse Rate 136 H 138 H Respiratory Rate 24 21 Blood Pressure 126/95 H Pulse Oximetry 98 98 Oxygen Delivery Method Room Air 11/21/22 05:54 11/21/22 05:54 11/21/22 06:00 Temperature Pulse Rate 94 H Respiratory Rate 30 H Blood Pressure 126/60 111/56 L Pulse Oximetry 97 Oxygen Delivery Method 11/21/22 06:00 11/21/22 06:18 11/21/22 06:18 Temperature Pulse Rate 90 105 H Respiratory Rate 25 H 33 H Blood Pressure 120/68 Pulse Oximetry 96 97 Oxygen Delivery Method 11/21/22 06:30 11/21/22 06:30 11/21/22 07:00 Temperature Pulse Rate 88 Respiratory Rate 22 Blood Pressure 102/57 L 101/59 L Pulse Oximetry 96 Oxygen Delivery Method 11/21/22 07:00 11/21/22 07:30 11/21/22 07:30 Temperature Pulse Rate 81 76 Respiratory Rate 25 H 23 Blood Pressure 86/50 L Pulse Oximetry 96 96 Oxygen Delivery Method 11/21/22 07:32 11/21/22 07:32 11/21/22 08:00 Temperature Pulse Rate 77 Respiratory Rate 36 H Blood Pressure 96/53 L 101/55 L Pulse Oximetry 98 Oxygen Delivery Method 11/21/22 08:00 11/21/22 08:26 11/21/22 08:27 Temperature Pulse Rate 78 82 Respiratory Rate 26 H 33 H Blood Pressure 118/56 L Pulse Oximetry 97 99 Oxygen Delivery Method 11/21/22 08:38 11/21/22 09:00 11/21/22 09:00 Temperature Pulse Rate 89 83 Respiratory Rate 25 H 38 H Blood Pressure 100/57 L Pulse Oximetry 97 Oxygen Delivery Method 11/21/22 09:30 11/21/22 09:30 Temperature Pulse Rate 78 Respiratory Rate 21 Blood Pressure 95/57 L Pulse Oximetry 98 Oxygen Delivery Method Room Air MDM - Chest Pain <Khang Ortiz DO - Last Filed: 11/22/22 03:09> Lab Data 11/21/22 05:30 11/21/22 05:30 Labs: Lab Results 11/21/22 11/21/22 11/21/22 Range/Units 05:30 05:30 05:30 WBC 10.3 (4.5-11.0) X10^3/uL RBC 3.88 L (4.0-5.2) X10^6/uL Hgb 10.7 L (12.0-16.0) g/dL Hct 32.9 L (36-46) % MCV 84.9 (80-100) fL MCH 27.6 (26-34) PG MCHC 32.6 (30-36) % RDW 17.6 H (11.6-14.8) % Plt Count 238 (150-400) X10^3/uL Neut % (Auto) 57.0 (50-75) % Lymph % (Auto) 22.5 L (25-40) % [place] % (Auto) 20.1 H (3-14) % Eos % (Auto) 0.2 L (2-4) % Baso % (Auto) 0.2 (0-2) % Neut # (Auto) 5900 (5057-6199) /uL Lymph # (Auto) 2300 (8557-6515) /uL [place] # (Auto) 2100 H (0-900) /uL Eos # (Auto) 0 (0-450) /uL Baso # (Auto) 0 (0-100) /uL PT 14.9 H (10.1-12.7) SECONDS INR 1.3 (0.9-1.3) Sodium 137 (137-145) mmol/L Potassium 3.3 L (3.4-5.1) mmol/L Chloride 101 (98-107) mmol/L Carbon Dioxide 25 (22-32) mmol/L BUN 13 (7-17) mg/dL Creatinine 0.62 (0.52-1.04) mg/dL Estimated GFR > 60 (>60) mL/min BUN/Creatinine Ratio 21.0 (6-22) Glucose 139 H (80-110) mg/dL Calcium 9.4 (8.4-10.2) mg/dL Magnesium (1.6-2.3) mg/dL Total Bilirubin 1.5 H (0.2-1.3) mg/dL AST 24 (14-36) IU/L ALT 19 (<35) IU/L Alkaline Phosphatase 82 (38-126) U/L Total Creatine Kinase 91 (30-135) U/L CK-MB (CK-2) TNP CK-MB (CK-2) Rel Index TNP Troponin I < 0.012 (0.01-0.034) ng/mL NT-Pro-B Natriuret Pep 1220 H (<450) pg/mL Total Protein 8.4 H (6.3-8.2) g/dL Albumin 4.7 (3.5-5.0) g/dL Globulin 3.7 (1.7-4.1) g/dL Albumin/Globulin Ratio 1.3 (1.0-2.8) Lipase 339 H (23-300) U/L 11/21/22 11/21/22 Range/Units 05:30 08:30 WBC (4.5-11.0) X10^3/uL RBC (4.0-5.2) X10^6/uL Hgb (12.0-16.0) g/dL Hct (36-46) % MCV (80-100) fL MCH (26-34) PG MCHC (30-36) % RDW (11.6-14.8) % Plt Count (150-400) X10^3/uL Neut % (Auto) (50-75) % Lymph % (Auto) (25-40) % [place] % (Auto) (3-14) % Eos % (Auto) (2-4) % Baso % (Auto) (0-2) % Neut # (Auto) (7470-4418) /uL Lymph # (Auto) (6791-6944) /uL [place] # (Auto) (0-900) /uL Eos # (Auto) (0-450) /uL Baso # (Auto) (0-100) /uL PT (10.1-12.7) SECONDS INR (0.9-1.3) Sodium (137-145) mmol/L Potassium (3.4-5.1) mmol/L Chloride (98-107) mmol/L Carbon Dioxide (22-32) mmol/L BUN (7-17) mg/dL Creatinine (0.52-1.04) mg/dL Estimated GFR (>60) mL/min BUN/Creatinine Ratio (6-22) Glucose (80-110) mg/dL Calcium (8.4-10.2) mg/dL Magnesium 2.1 (1.6-2.3) mg/dL Total Bilirubin (0.2-1.3) mg/dL AST (14-36) IU/L ALT (<35) IU/L Alkaline Phosphatase (38-126) U/L Total Creatine Kinase 65 (30-135) U/L CK-MB (CK-2) TNP CK-MB (CK-2) Rel Index TNP Troponin I < 0.012 (0.01-0.034) ng/mL NT-Pro-B Natriuret Pep (<450) pg/mL Total Protein (6.3-8.2) g/dL Albumin (3.5-5.0) g/dL Globulin (1.7-4.1) g/dL Albumin/Globulin Ratio (1.0-2.8) Lipase (23-300) U/L MDM Narrative Medical decision making narrative: 82-year-old female with known, reported chronic atrial fibrillation is anticoagulated and presents with chest pain and pressure since about midnight. Initially her heart rate is in the 160s, she has not taken her medications yet today. After discussion with Cardiology we would like to focus on rate control, wait for labs to return. Even prior to receiving her metoprolol her heart rate slowed to the low 100s and symptoms have improved, but she still has 3/10 chest pressure. Patient has had K replaced and was given NG with complete resolution of symptoms. HR remains in 90s. BP in 120s <Binapresley Trevino, DO - Last Filed: 11/21/22 19:15> Lab Data Labs: Lab Results 11/21/22 11/21/22 11/21/22 Range/Units 05:30 05:30 05:30 WBC 10.3 (4.5-11.0) X10^3/uL RBC 3.88 L (4.0-5.2) X10^6/uL Hgb 10.7 L (12.0-16.0) g/dL Hct 32.9 L (36-46) % MCV 84.9 (80-100) fL MCH 27.6 (26-34) PG MCHC 32.6 (30-36) % RDW 17.6 H (11.6-14.8) % Plt Count 238 (150-400) X10^3/uL Neut % (Auto) 57.0 (50-75) % Lymph % (Auto) 22.5 L (25-40) % [place] % (Auto) 20.1 H (3-14) % Eos % (Auto) 0.2 L (2-4) % Baso % (Auto) 0.2 (0-2) % Neut # (Auto) 5900 (5004-5856) /uL Lymph # (Auto) 2300 (4227-4452) /uL [place] # (Auto) 2100 H (0-900) /uL Eos # (Auto) 0 (0-450) /uL Baso # (Auto) 0 (0-100) /uL PT 14.9 H (10.1-12.7) SECONDS INR 1.3 (0.9-1.3) Sodium 137 (137-145) mmol/L Potassium 3.3 L (3.4-5.1) mmol/L Chloride 101 (98-107) mmol/L Carbon Dioxide 25 (22-32) mmol/L BUN 13 (7-17) mg/dL Creatinine 0.62 (0.52-1.04) mg/dL Estimated GFR > 60 (>60) mL/min BUN/Creatinine Ratio 21.0 (6-22) Glucose 139 H (80-110) mg/dL Calcium 9.4 (8.4-10.2) mg/dL Magnesium (1.6-2.3) mg/dL Total Bilirubin 1.5 H (0.2-1.3) mg/dL AST 24 (14-36) IU/L ALT 19 (<35) IU/L Alkaline Phosphatase 82 (38-126) U/L Total Creatine Kinase 91 (30-135) U/L CK-MB (CK-2) TNP CK-MB (CK-2) Rel Index TNP Troponin I < 0.012 (0.01-0.034) ng/mL NT-Pro-B Natriuret Pep 1220 H (<450) pg/mL Total Protein 8.4 H (6.3-8.2) g/dL Albumin 4.7 (3.5-5.0) g/dL Globulin 3.7 (1.7-4.1) g/dL Albumin/Globulin Ratio 1.3 (1.0-2.8) Lipase 339 H (23-300) U/L 11/21/22 11/21/22 Range/Units 05:30 08:30 WBC (4.5-11.0) X10^3/uL RBC (4.0-5.2) X10^6/uL Hgb (12.0-16.0) g/dL Hct (36-46) % MCV (80-100) fL MCH (26-34) PG MCHC (30-36) % RDW (11.6-14.8) % Plt Count (150-400) X10^3/uL Neut % (Auto) (50-75) % Lymph % (Auto) (25-40) % [place] % (Auto) (3-14) % Eos % (Auto) (2-4) % Baso % (Auto) (0-2) % Neut # (Auto) (4446-1588) /uL Lymph # (Auto) (2036-9942) /uL [place] # (Auto) (0-900) /uL Eos # (Auto) (0-450) /uL Baso # (Auto) (0-100) /uL PT (10.1-12.7) SECONDS INR (0.9-1.3) Sodium (137-145) mmol/L Potassium (3.4-5.1) mmol/L Chloride (98-107) mmol/L Carbon Dioxide (22-32) mmol/L BUN (7-17) mg/dL Creatinine (0.52-1.04) mg/dL Estimated GFR (>60) mL/min BUN/Creatinine Ratio (6-22) Glucose (80-110) mg/dL Calcium (8.4-10.2) mg/dL Magnesium 2.1 (1.6-2.3) mg/dL Total Bilirubin (0.2-1.3) mg/dL AST (14-36) IU/L ALT (<35) IU/L Alkaline Phosphatase (38-126) U/L Total Creatine Kinase 65 (30-135) U/L CK-MB (CK-2) TNP CK-MB (CK-2) Rel Index TNP Troponin I < 0.012 (0.01-0.034) ng/mL NT-Pro-B Natriuret Pep (<450) pg/mL Total Protein (6.3-8.2) g/dL Albumin (3.5-5.0) g/dL Globulin (1.7-4.1) g/dL Albumin/Globulin Ratio (1.0-2.8) Lipase (23-300) U/L ECG Data Attestation: I personally reviewed and interpreted this ECG as follows: Prior ECG tracings: available for review Interpretation: EKG 1. AFib with RVR rate of 141 QRS is [address] depression in lateral leads V4 through 6. Possibly present in 2 but do not appreciate in 3, no elevation appreciated. Patient does not have prior depression on old EKG from 12/31/2021 but was rate was 113 at that time. EKG 2. AFib rate of 74 QRS of [address] depression has resolved in lateral leads, no other acute or dynamic changes appreciated. [facility] Narrative Medical decision making narrative: 82-year-old female with known, reported chronic atrial fibrillation is a nticoagulated and presents with chest pain and pressure since about midnight. Initially her heart rate is in the 160s, she has not taken her medications yet today. After discussion with Cardiology we would like to focus on rate control, wait for labs to return. Even prior to receiving her metoprolol her heart rate slowed to the low 100s and symptoms have improved, but she still has 3/10 chest pressure. Patient has had K replaced and was given NG with complete resolution of symptoms. HR remains in 90s. BP in 120s. Belinda 11/21/22 0755: Patient seen and independently evaluated by myself. Patient states she is feeling much better. She states chest pain started overnight she noted her heart rate was quite fast. She does not normally feel it but she did last night heart rate was quite a bit faster than normal. Patient has a known history of atrial fibrillation cardiology note from 11/11/2022 shows 7 day atrial fib monitor 100% burden 54-82 beats per minute average 88 patient states she runs around 100 range typically she also notes her blood pressure tends to be 100 to 120s which is also consistent with patient's note. Patient had not had any missed doses of medications she states she was told she should start Lasix but has not received the prescription in the mail order pharmacy yet. Patient has not echo from 09/15/2022 with an EF of 50-60%, unable to grade diastolic function mild RV dilation with normal function severe biatrial enlargement moderate MR and TR, mild and mild AR, PASP 50 mm, ascending aorta 3.7 mm. Patient is feeling much improved after dose of oral metoprolol, she also received aspirin 324 mg, potassium chloride and 1 nitro which she states resolved her chest pain. Nitro was received as her symptoms had not resolved even as her heart rate was slowly improving. Patient's labs show baseline anemia with hemoglobin of 10, potassium was 3.3 and was replaced for rate control. Mag was 2.1, initial troponin was negative BNP was 1220, normal renal function and LFTs other than a bilirubin of 1.5. Patient is noted to have depression in lateral leads with AFib RVR with a rate of 141 on her EKG no elevation. Dr. Ortiz spoke with Dr. Pelayo overnight. Systolic blood pressures been more 80s to 90s with a rate in the 70s likely contribution of the nitro and metoprolol together patient was about an hour after she would received her medications. She is currently asymptomatic. Plan for repeat troponin 0830, EKG and will recontact cardiology. Patient trop is negative. ST depression resolved. Reviewed with Dr. Pelayo patient's digital ad trafficker. She recommends go ahead and starting patient on her 20 mg Lasix daily, we discussed if she should be increased on metoprolol but noted her pressures today and will defer this time. She does not feel that they would cardiac catheterize this patient and do not need to repeat stress test her toda y. Discussed findings with patient's recommendations and return precautions. Discharge Plan Departure Patient Disposition: Home Clinical Impression: Chest pain, Atrial fibrillation with rapid ventricular response Instructions: DI for Chest Pain Activity Restrictions/Additional Instructions: Please follow up with Dr. Pelayo your digital ad trafficker. I hope you continue to feel well. Please start your Lasix 20 mg daily in addition to your regular medications. Prescription sent to [facility] in [place]. If you have recurrent symptoms please return to the ER, new chest pain, shortness of breath, persistently fast heart rate, lightheadedness or passing out, new swelling in her extremities or other new or concerning changes. Prescriptions: New furosemide [Lasix] 20 mg tablet 20 mg PO DAILY Qty: 20 0RF No Action sulfamethoxazole-trimethoprim [Bactrim DS] 800-160 mg tablet 1 tab PO BID Qty: 14 0RF cholecalciferol (vitamin D3) [Vitamin D3] 2,000 UNIT capsule 2,000 unit PO QDAY Qty: 0 apixaban 2.5 mg tablet 2.5 mg PO BID metoprolol tartrate 25 mg tablet 12.5 mg PO BID celecoxib [Celebrex] 200 mg capsule 200 mg PO DAILY Qty: 90 5RF Referrals: Carlos Youngblood MD [Primary Care Provider] - Stand Alone Forms: Patient Portal/API
--- NOTE | 2022-11-21 05:22 | DI.RAD.S_ITS ---
PROCEDURE: XR CHEST 1V INDICATIONS: chest pain TECHNIQUE: One view of the chest was acquired. COMPARISON: [facility], , CHEST 2 VIEW, 11/08/2014, 15:55. FINDINGS: Surgical changes and devices: None. Lungs and pleura: Faint appearance of increased opacity is noted overlying the right apex. No pleural effusions or pneumothorax. Lungs are hyperinflated. Mediastinum: Mediastinal contours appear normal. Heart size is enlarged. Bones and chest wall: No suspicious bony lesions. Overlying soft tissues appear unremarkable. IMPRESSION: Possible right apex infiltrate versus artifact. Recommend interval follow-up to document resolution. The above findings are concordant with preliminary report. Dictated by: Joyce Webb M.D. on 11/21/2022 at 8:29 Approved by: Joyce Webb M.D. on 11/21/2022 at 8:32
[2022-11-21] MEDS: SODIUM CHLORIDE 0.9% 1,000 ML 150 ML IV (05:38)
[2022-11-21] MEDS: ASPIRIN 81 MG CHEW TAB 324 MG PO (05:38)
[2022-11-21 05:42] LABS: Add Manual Diff / Slide Review NO; Basophils Absolute Auto 0 /uL (0-100); Basophils Percent Auto 0.2 % (0-2); Eosinophils Absolute Auto 0 /uL (0-450); Eosinophils Percent Auto 0.2 % (2-4); Hematocrit 32.9 % (36-46); Hemoglobin 10.7 g/dL (12.0-16.0); Lymphocytes Absolute Auto 2300 /uL (1100-4500); Lymphocytes Percent Auto 22.5 % (25-40); Mean Corpuscular HGB Conc 32.6 % (30-36); Mean Corpuscular Hemoglobin 27.6 PG (26-34); Mean Corpuscular Volume 84.9 fL (80-100); Monocytes Absolute Auto 2100 /uL (0-900); Monocytes Percent Auto 20.1 % (3-14); Neutrophils Absolute Auto 5900 /uL (1500-7000); Platelet Count 238 X10^3/uL (150-400); Red Blood Cell Count 3.88 X10^6/uL (4.0-5.2); Red Cell Distribution Width 17.6 % (11.6-14.8); White Blood Cell Count 10.3 X10^3/uL (4.5-11.0)
[2022-11-21 05:50] LABS: INR 1.3 (0.9-1.3); Prothrombin Time 14.9 SECONDS (10.1-12.7)
[2022-11-21] MEDS: METOPROLOL IR 25 MG TABLET PO (05:51)
[2022-11-21 05:55] LABS: Alanine Aminotransferase 19 IU/L (<35); Albumin 4.7 g/dL (3.5-5.0); Albumin Globulin Ratio 1.3 (1.0-2.8); Alkaline Phosphatase 82 U/L (38-126); Aspartate Aminotransferase 24 IU/L (14-36); Bilirubin Total 1.5 mg/dL (0.2-1.3); Blood Urea Nitrogen 13 mg/dL (7-17); Calcium 9.4 mg/dL (8.4-10.2); Carbon Dioxide 25 mmol/L (22-32); Chloride 101 mmol/L (98-107); Creatine Kinase 91 U/L (30-135); Estimated Glomerular Filt Rate > 60 mL/min (>60); Globulin 3.7 g/dL (1.7-4.1); Glucose 139 mg/dL (80-110); HEMOLYSIS < 15 (0-50); Lipase 339 U/L (23-300); Potassium 3.3 mmol/L (3.4-5.1); Sodium 137 mmol/L (137-145); Total Protein 8.4 g/dL (6.3-8.2)
[2022-11-21 06:07] LABS: NT-proBNP (BNP-Adult 18+) 1220 pg/mL (<450); Troponin I < 0.012 ng/mL (0.01-0.034)
[2022-11-21] MEDS: POTASSIUM CHLORIDE 20 MEQ/15 ML UDC 40 MEQ PO (06:15)
[2022-11-21 06:18] LABS: Magnesium 2.1 mg/dL (1.6-2.3)
[2022-11-21] MEDS: NITROGLYCERIN 0.4 MG SL TAB SL (06:19)
[2022-11-21 08:44] LABS: Creatine Kinase 65 U/L (30-135)
[2022-11-21 08:56] LABS: Troponin I < 0.012 ng/mL (0.01-0.034)
== END 2022-11-21 10:09 | disposition home or self-care (01) ==
PROVIDERS: Emergency Medicine; Emergency Provider Emergency Medicine; PCP Student in an Organized Health Care Education/Training Program
DX: R07.9 Chest pain, unspecified (principal); I48.91 Unspecified atrial fibrillation; Z79.01 Long term (current) use of anticoagulants
CPT/HCPCS: 36415; 71045; 80053; 82550; 83690; 83735; 83880; 84484; 85025; 85610; 93005; 99284

== ENCOUNTER → 2022-12-03 07:24 | Outpatient (CLI) | payer MEDICARE, OTHER, SELFPAY ==
--- NOTE | 2022-12-03 07:31 | DI.RAD.S_ITS ---
PROCEDURE: XR CHEST 2V INDICATIONS: ABNORMAL CHEST XRAY TECHNIQUE: 2 views of the chest were [facility]. [facility], [facility], CHEST 2 VIEW, 11/08/2014, 15:55. FINDINGS: Surgical changes and devices: Right breast clip. Lungs and pleura: Lungs appear clear. Possible opacity at the right apex is felt to be artifactual. Prominent lung volumes. No pleural effusions or pneumothorax. Mediastinum: Mediastinal contours are normal. Heart size is normal. Bones and chest wall: No suspicious bony abnormalities. Soft tissues appear unremarkable. IMPRESSION: No acute cardiopulmonary abnormality. Dictated by: Salvatore Crowder M.D. on 12/03/2022 at 9:35 Approved by: Salvatore Crowder M.D. on 12/03/2022 at 9:37
[2022-12-03 08:28] LABS: Add Manual Diff / Slide Review NO; Basophils Absolute Auto 0 /uL (0-100); Basophils Percent Auto 0.4 % (0-2); Eosinophils Absolute Auto 100 /uL (0-450); Eosinophils Percent Auto 1.9 % (2-4); Hemoglobin 9.5 g/dL (12.0-16.0); Lymphocytes Absolute Auto 1000 /uL (1100-4500); Lymphocytes Percent Auto 31.2 % (25-40); Mean Corpuscular HGB Conc 33.7 % (30-36); Mean Corpuscular Hemoglobin 28.9 PG (26-34); Mean Corpuscular Volume 85.7 fL (80-100); Monocytes Absolute Auto 400 /uL (0-900); Monocytes Percent Auto 11.8 % (3-14); Neutrophils Absolute Auto 1700 /uL (1500-7000); Neutrophils Percent Auto 54.7 % (50-75); Platelet Count 453 X10^3/uL (150-400); Red Blood Cell Count 3.27 X10^6/uL (4.0-5.2); Red Cell Distribution Width 17.2 % (11.6-14.8); White Blood Cell Count 3.1 X10^3/uL (4.5-11.0)
[2022-12-03 08:44] LABS: Alanine Aminotransferase 15 IU/L (<35); Albumin 4.1 g/dL (3.5-5.0); Albumin Globulin Ratio 1.2 (1.0-2.8); Alkaline Phosphatase 72 U/L (38-126); Aspartate Aminotransferase 28 IU/L (14-36); BUN Creatinine Ratio 23.2 (6-22); Bilirubin Total 0.5 mg/dL (0.2-1.3); Blood Urea Nitrogen 16 mg/dL (7-17); Calcium 8.9 mg/dL (8.4-10.2); Carbon Dioxide 29 mmol/L (22-32); Chloride 102 mmol/L (98-107); Cholesterol 170 mg/dL (140-199); Estimated Glomerular Filt Rate > 60 mL/min (>60); Globulin 3.3 g/dL (1.7-4.1); Glucose 103 mg/dL (80-110); HDL Cholesterol 45 mg/dL (40-60); HEMOLYSIS < 15 (0-50); LDL Cholesterol Calculated 108 mg/dL (<100); Magnesium 2.2 mg/dL (1.6-2.3); Potassium 4.2 mmol/L (3.4-5.1); Sodium 140 mmol/L (137-145); Total Protein 7.4 g/dL (6.3-8.2); Triglycerides 84 mg/dL (35-150)
[2022-12-03 09:11] LABS: Vitamin D 25 Hydroxy (D3) 38.6 ng/mL (30.0-100.0)
[2022-12-04 02:32] LABS: Labcorp Hemoglobin (Hb) A1c 5.9 % (4.8-5.6)
== END ==
PROVIDERS: PCP Student in an Organized Health Care Education/Training Program; Referring Provider Internal Medicine Cardiovascular Disease; Visit Provider Internal Medicine Cardiovascular Disease
DX: R79.9 Abnormal finding of blood chemistry, unspecified (principal); I51.89 Other ill-defined heart diseases; R93.89 Abnormal findings on diagnostic imaging of other specified body structures; E55.9 Vitamin D deficiency, unspecified; I48.91 Unspecified atrial fibrillation; Z13.220 Encounter for screening for lipoid disorders; Z13.1 Encounter for screening for diabetes mellitus
CPT/HCPCS: 36415; 71046; 80053; 80061; 82306; 83036; 83735; 84443; 85025

== ENCOUNTER → 2023-03-23 14:55 | Outpatient (CLI) | payer MEDICARE, OTHER, SELFPAY ==
--- NOTE | 2023-03-23 | DI.MG.S_ITS ---
BILATERAL DIGITAL SCREENING MAMMOGRAM 3D/2D WITH CAD: 03/23/2023 CLINICAL: Routine screening. Family history of breast cancer. Comparison is made to exams dated: 02/24/2022 mammogram, 01/29/2021 mammogram, and 02/22/2019 mammogram - [facility]. Both breasts are heterogeneously dense, which may obscure small masses (category c / 51-75% glandular tissue). Current study was also evaluated with a Computer Aided Detection (CAD) system. There is a biopsy marker in the right breast. There are stable post surgical changes in the left breast from prior excisional biopsy. No significant masses, calcifications, or other findings are seen in either breast. IMPRESSION: BENIGN There is no mammographic evidence of malignancy. A 1 year screening mammogram is recommended. This exam was interpreted at Station ID: [id number]. NOTE: For mammograms, a report in lay terms will be sent to the patient. Approximately 15% of breast malignancies will not be visualized mammographically. In the management of a palpable breast mass, a negative mammogram must not discourage biopsy of a clinically suspicious lesion. Electronically Signed By: Sofia [email or web address]:03/29/2023 09:37:55 letter sent: Normal Exam ACR BI-RADS Category 2: Benign Finding(s) [id number]
== END ==
PROVIDERS: PCP Student in an Organized Health Care Education/Training Program; Referring Provider Pediatrics; Visit Provider Pediatrics
DX: Z12.31 Encounter for screening mammogram for malignant neoplasm of breast (principal)
CPT/HCPCS: 77063; 77067

== ENCOUNTER → 2023-03-25 11:13 | Outpatient (CLI) | payer MEDICARE, OTHER, SELFPAY ==
--- NOTE | 2023-03-25 11:46 | DI.RAD.S_ITS ---
PROCEDURE: XR CHEST 2V INDICATIONS: pleural abnl? hiatal hernia? cor silhouette? TECHNIQUE: 2 views of the chest were acquired. COMPARISON: CR, XR ACUTE ABDOMEN SERIES, 12/31/2021, 8:34. [facility], CR, XR CHEST 1V, 11/21/2022, 5:25. [facility], CR, XR CHEST 2V, 12/03/2022, 7:56. FINDINGS: Surgical changes and devices: None. Lungs and pleura: 1.6 cm rounded opacity seen on the frontal view projected over the right lung apex. Lung volumes are increased. Lungs are otherwise clear. No pleural effusions or pneumothorax. Mediastinum: Mediastinal contours are normal. Heart size is normal. Bones and chest wall: No suspicious bony abnormalities. Soft tissues appear unremarkable. IMPRESSION: 1. 1.6 cm rounded opacity projected over the right lung apex. Lung nodule cannot be excluded and chest CT is recommended for further assessment. 2. Lung volumes are increased suggesting COPD, correlate with pulmonary functions test. Dictated by: Leonardo Goldstein RR Interpreted: Nathan Brown MD on 03/25/2023 at 12:29 Approved by: Nathan Brown M.D. on 03/25/2023 at 15:58
[2023-03-25 11:56] LABS: Add Manual Diff / Slide Review NO; Basophils Absolute Auto 0 /uL (0-100); Basophils Percent Auto 0.7 % (0-2); Eosinophils Absolute Auto 100 /uL (0-450); Eosinophils Percent Auto 3.2 % (2-4); Hematocrit 31.9 % (36-46); Hemoglobin 10.3 g/dL (12.0-16.0); Lymphocytes Absolute Auto 800 /uL (1100-4500); Lymphocytes Percent Auto 22.6 % (25-40); Mean Corpuscular HGB Conc 32.4 % (30-36); Mean Corpuscular Hemoglobin 25.8 PG (26-34); Mean Corpuscular Volume 79.9 fL (80-100); Monocytes Absolute Auto 600 /uL (0-900); Monocytes Percent Auto 18.9 % (3-14); Neutrophils Absolute Auto 1800 /uL (1500-7000); Neutrophils Percent Auto 54.6 % (50-75); Platelet Count 287 X10^3/uL (150-400); Red Cell Distribution Width 17.7 % (11.6-14.8); White Blood Cell Count 3.4 X10^3/uL (4.5-11.0)
[2023-03-25 12:03] LABS: Hemoglobin A1C% w Est Avg Glu 5.6 % (4.0-6.0)
[2023-03-25 12:38] LABS: HEMOLYSIS < 15 (0-50); NT-proBNP (BNP-Adult 18+) 1500 pg/mL (<450)
[2023-03-25 12:42] LABS: Alanine Aminotransferase 20 IU/L (<35); Albumin 4.6 g/dL (3.5-5.0); Albumin Globulin Ratio 1.5 (1.0-2.8); Alkaline Phosphatase 73 U/L (38-126); Aspartate Aminotransferase 30 IU/L (14-36); BUN Creatinine Ratio 24.6 (6-22); Bilirubin Total 0.5 mg/dL (0.2-1.3); Blood Urea Nitrogen 17 mg/dL (7-17); Calcium 9.3 mg/dL (8.4-10.2); Carbon Dioxide 27 mmol/L (22-32); Chloride 102 mmol/L (98-107); Estimated Glomerular Filt Rate > 60 mL/min (>60); Globulin 3.1 g/dL (1.7-4.1); Glucose 120 mg/dL (80-110); Potassium 4.5 mmol/L (3.4-5.1); Sodium 138 mmol/L (137-145); Total Protein 7.7 g/dL (6.3-8.2)
[2023-03-25 12:46] LABS: Appearance Urine UA CLEAR; Bilirubin Urine UA NEGATIVE (NEGATIVE); Color Urine UA YELLOW; Glucose Urine UA NEGATIVE (Negative); Ketones Urine UA NEGATIVE (NEGATIVE); Leukocyte Esterase Urine UA NEGATIVE (NEGATIVE); Nitrite Urine UA NEGATIVE (Negative); Occult Blood Urine UA 2+ (Negative); Protein Urine UA NEGATIVE (Negative); Urobilinogen Urine UA 0.2 E.U./dL (0.2)
[2023-03-25 13:05] LABS: Bacteria Urine Few (2-10); Culture Indicated Urine Cult Not Indicated; RBC Urine 0-1/HPF (0-5/HPF); Squamous Epithelial Cell Urine 1-5 /HPF (0-5/HPF); WBC Urine 0-1/HPF (0-5/HPF)
--- NOTE | 2023-03-29 11:03 | PC.NURSE ---
Heme referral in. 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 Pt is on [facility] call list to call her when provider is hired
== END ==
PROVIDERS: PCP Pediatrics; Referring Provider Pediatrics; Visit Provider Pediatrics
DX: D50.9 Iron deficiency anemia, unspecified (principal); K29.70 Gastritis, unspecified, without bleeding; K59.00 Constipation, unspecified; M17.10 Unilateral primary osteoarthritis, unspecified knee; M81.0 Age-related osteoporosis without current pathological fracture; R07.89 Other chest pain; D64.9 Anemia, unspecified; R79.89 Other specified abnormal findings of blood chemistry
CPT/HCPCS: 36415; 71046; 80053; 81001; 83036; 83880; 85025

== ENCOUNTER → 2023-04-06 12:35 | Outpatient (CLI) | payer MEDICARE, OTHER, SELFPAY ==
--- NOTE | 2023-04-06 12:36 | DI.CT.S_ITS ---
PROCEDURE: CT CHEST WO CON INDICATIONS: r/t lung nodules TECHNIQUE: Noncontrast 5 mm thick sections acquired from the pulmonary apices to the posterior costophrenic angles. 1 mm lung window, 5 mm thick coronal and sagittal and 7 mm axial MIP reformats were then acquired. For radiation dose reduction, the following was used: automated exposure control, adjustment of mA and/or kV according to patient size. COMPARISON: [facility], CR, XR CHEST 2V, 12/03/2022, 7:56. [facility], CR, XR CHEST 2V, 03/25/2023, 11:49. FINDINGS: Lungs and pleura: Biapical pleural/parenchymal scarring and/or pleural plaquing with calcification present. This may correspond to the finding described in the report for recent chest radiographs. A few nodules are also present, for example a 6 mm partially calcified nodule at the superior segment of the right lower lobe (3/82). No pleural effusion. Mediastinum: Multi chamber cardiac enlargement. No pericardial effusion. Esophagus is normal in caliber. Bones and chest wall: Multilevel degenerative change of the visualized spine. No axillary or supraclavicular adenopathy by size criteria. Abdomen: Visualized upper abdominal solid organs and bowel loops appear unremarkable in the absence of contrast. IMPRESSION: 1. Biapical pleural/parenchymal scarring and/or pleural plaquing is present, which may account for the finding described in the report for recent chest radiographs. Correlation with any history of asbestos exposure may be helpful. 2. A few small pulmonary nodules are also present. Presence of an underlying nodule at the regions of apical scarring/plaquing is difficult to exclude. Could consider imaging follow-up for example in 3-6 months or other interval at clinical discretion. Dictated by: Roger Robles M.D. on 04/07/2023 at 10:04 Approved by: Roger Robles M.D. on 04/07/2023 at 10:23
== END ==
PROVIDERS: PCP Pediatrics; Referring Provider Pediatrics; Visit Provider Pediatrics
DX: R91.8 Other nonspecific abnormal finding of lung field (principal)
CPT/HCPCS: 71250

== ENCOUNTER → 2023-08-26 14:15 | Outpatient (CLI) | payer MEDICARE, OTHER, SELFPAY ==
[2023-08-26 14:52] LABS: Hematocrit 34.1 % (36-46); Hemoglobin 11.1 g/dL (12.0-16.0); Mean Corpuscular HGB Conc 32.6 % (30-36); Mean Corpuscular Hemoglobin 26.8 PG (26-34); Mean Corpuscular Volume 82.3 fL (80-100); Platelet Count 247 X10^3/uL (150-400); Red Blood Cell Count 4.15 X10^6/uL (4.0-5.2); Red Cell Distribution Width 17.5 % (11.6-14.8); White Blood Cell Count 4.5 X10^3/uL (4.5-11.0)
[2023-08-26 14:59] LABS: Add Manual Diff / Slide Review YES
[2023-08-26 15:21] LABS: HEMOLYSIS < 15 (0-50); Iron 59 ug/dL (37-170); Neutrophils Absolute Manual 2295 /uL (3000-5900); Total Cells Counted 100
[2023-08-26 15:22] LABS: Anisocytosis 1+
[2023-08-26 15:24] LABS: Alanine Aminotransferase 13 IU/L (<35); Albumin 4.6 g/dL (3.5-5.0); Albumin Globulin Ratio 1.4 (1.0-2.8); Alkaline Phosphatase 71 U/L (38-126); Aspartate Aminotransferase 27 IU/L (14-36); BUN Creatinine Ratio 27.8 (6-22); Bilirubin Total 0.7 mg/dL (0.2-1.3); Blood Urea Nitrogen 22 mg/dL (7-17); Calcium 9.3 mg/dL (8.4-10.2); Carbon Dioxide 28 mmol/L (22-32); Chloride 100 mmol/L (98-107); Estimated Glomerular Filt Rate > 60 mL/min (>60); Globulin 3.3 g/dL (1.7-4.1); Glucose 88 mg/dL (80-110); HEMOLYSIS < 15 (0-50); Sodium 139 mmol/L (137-145); Total Protein 7.9 g/dL (6.3-8.2)
[2023-08-26 15:32] LABS: Percent Iron Saturation 13 % (15-50); Total Iron Binding Capacity 443 ug/dL (265-497); Transferrin 349 mg/dL (206-381)
[2023-08-26 15:53] LABS: Thyroid Stimulating Hormone 2.38 uIU/mL (0.47-4.68)
[2023-08-26 15:56] LABS: Ferritin 11 ng/mL (11-264)
[2023-08-26 16:28] LABS: Folate > 20.0 ng/mL (2.76-20.0); Vitamin B12 742 pg/mL (239-931)
== END ==
PROVIDERS: PCP Internal Medicine; Referring Provider Nurse Practitioner Gerontology; Visit Provider Nurse Practitioner Gerontology
DX: D64.9 Anemia, unspecified (principal)
CPT/HCPCS: 36415; 80053; 82607; 82728; 82746; 83540; 83550; 84443; 85007; 85025

== ENCOUNTER → 2023-11-23 14:31 | Outpatient (CLI) | payer MEDICARE, OTHER, SELFPAY ==
[2023-11-23 15:18] LABS: Add Manual Diff / Slide Review NO; Basophils Absolute Auto 0 /uL (0-100); Basophils Percent Auto 0.2 % (0-2); Eosinophils Absolute Auto 0 /uL (0-450); Eosinophils Percent Auto 1.1 % (2-4); Hematocrit 36.8 % (36-46); Hemoglobin 12.3 g/dL (12.0-16.0); Lymphocytes Absolute Auto 1100 /uL (1100-4500); Lymphocytes Percent Auto 29.5 % (25-40); Mean Corpuscular HGB Conc 33.6 % (30-36); Mean Corpuscular Hemoglobin 32.2 PG (26-34); Mean Corpuscular Volume 95.8 fL (80-100); Monocytes Absolute Auto 600 /uL (0-900); Monocytes Percent Auto 16.1 % (3-14); Neutrophils Absolute Auto 2000 /uL (1500-7000); Neutrophils Percent Auto 53.1 % (50-75); Platelet Count 184 X10^3/uL (150-400); Red Blood Cell Count 3.84 X10^6/uL (4.0-5.2); Red Cell Distribution Width 18.1 % (11.6-14.8); White Blood Cell Count 3.7 X10^3/uL (4.5-11.0)
[2023-11-23 15:53] LABS: HEMOLYSIS < 15 (0-50); Iron 98 ug/dL (37-170)
[2023-11-23 15:57] LABS: Alanine Aminotransferase 19 IU/L (<35); Albumin 4.6 g/dL (3.5-5.0); Albumin Globulin Ratio 1.6 (1.0-2.8); Alkaline Phosphatase 96 U/L (38-126); Aspartate Aminotransferase 33 IU/L (14-36); BUN Creatinine Ratio 23.4 (6-22); Bilirubin Total 0.8 mg/dL (0.2-1.3); Blood Urea Nitrogen 15 mg/dL (7-17); Calcium 8.8 mg/dL (8.4-10.2); Carbon Dioxide 28 mmol/L (22-32); Chloride 107 mmol/L (98-107); Estimated Glomerular Filt Rate > 60 mL/min (>60); Globulin 2.8 g/dL (1.7-4.1); Glucose 114 mg/dL (80-110); HEMOLYSIS < 15 (0-50); Potassium 4.1 mmol/L (3.4-5.1); Sodium 140 mmol/L (137-145); Total Protein 7.4 g/dL (6.3-8.2)
[2023-11-23 16:05] LABS: Percent Iron Saturation 40 % (15-50); Total Iron Binding Capacity 248 ug/dL (265-497); Transferrin 184 mg/dL (206-381)
[2023-11-23 16:31] LABS: Ferritin 342 ng/mL (11-264)
== END ==
PROVIDERS: PCP Internal Medicine; Referring Provider Nurse Practitioner Gerontology; Visit Provider Nurse Practitioner Gerontology
DX: D64.9 Anemia, unspecified (principal)
CPT/HCPCS: 36415; 80053; 82728; 83540; 83550; 85025

== ENCOUNTER → 2024-04-17 14:24 | Outpatient (CLI) | payer MEDICARE, OTHER, SELFPAY ==
--- NOTE | 2024-04-17 | DI.MG.S_ITS ---
BILATERAL DIGITAL SCREENING MAMMOGRAM 3D/2D WITH CAD: 04/17/2024 CLINICAL: Routine screening. Family history of breast cancer. Comparison is made to exams dated: 03/23/2023 mammogram, 02/24/2022 mammogram, and 01/29/2021 mammogram - [facility]. The breasts are heterogeneously dense, which may obscure small masses (category c / 51-75% glandular tissue). Current study was also evaluated with a Computer Aided Detection (CAD) system. There are benign post operative findings and biopsy clip in the right breast. There also are benign post operative findings in the left breast. No significant masses, calcifications, or other findings are seen in either breast. There has been no significant interval change. IMPRESSION: BENIGN There is no mammographic evidence of malignancy. A 1 year screening mammogram is recommended. This exam was interpreted at Station ID: [id number]. NOTE: For mammograms, a report in lay terms will be sent to the patient. Approximately 15% of breast malignancies will not be visualized mammographically. In the management of a palpable breast mass, a negative mammogram must not discourage biopsy of a clinically suspicious lesion. Electronically Signed By: Sergio [email or web address]:04/17/2024 15:28:12 letter sent: Normal Exam ACR BI-RADS Category 2: Benign
== END ==
PROVIDERS: PCP Internal Medicine; Referring Provider Internal Medicine; Visit Provider Internal Medicine
DX: Z12.31 Encounter for screening mammogram for malignant neoplasm of breast (principal); Z80.3 Family history of malignant neoplasm of breast; R92.333 Mammographic heterogeneous density, bilateral breasts
CPT/HCPCS: 77063; 77067

== ENCOUNTER → 2024-04-28 08:00 | Outpatient (CLI) | payer MEDICARE, OTHER, SELFPAY ==
[2024-04-28 10:00] LABS: Alanine Aminotransferase 16 IU/L (<35); Albumin 4.2 g/dL (3.5-5.0); Albumin Globulin Ratio 1.5 (1.0-2.8); Alkaline Phosphatase 72 U/L (38-126); Aspartate Aminotransferase 30 IU/L (14-36); BUN Creatinine Ratio 24.6 (6-22); Blood Urea Nitrogen 17 mg/dL (7-17); Calcium 9.4 mg/dL (8.4-10.2); Carbon Dioxide 27 mmol/L (22-32); Chloride 102 mmol/L (98-107); Cholesterol 172 mg/dL (140-199); Estimated Glomerular Filt Rate > 60 mL/min (>60); Globulin 2.8 g/dL (1.7-4.1); Glucose 109 mg/dL (80-110); HDL Cholesterol 61 mg/dL (40-60); HEMOLYSIS < 15 (0-50); LDL Cholesterol Calculated 92 mg/dL (<100); Potassium 4.2 mmol/L (3.4-5.1); Sodium 137 mmol/L (137-145); Triglycerides 96 mg/dL (35-150)
== END ==
PROVIDERS: PCP Internal Medicine; Referring Provider Internal Medicine Cardiovascular Disease; Visit Provider Internal Medicine Cardiovascular Disease
DX: I50.32 Chronic diastolic (congestive) heart failure (principal); Z13.220 Encounter for screening for lipoid disorders
CPT/HCPCS: 36415; 80053; 80061

== ENCOUNTER → 2024-06-18 09:11 | Outpatient (CLI) | payer MEDICARE, OTHER, SELFPAY ==
--- NOTE | 2024-06-18 09:14 | DI.ECHO.S_ITS ---
[facility]---------+ [facility] : : [address] : [place] : : [id number] : : Phone: [phone] Echocardiogram Report + + :Name: NANCY MOTT Study Date: 06/18/2024 Height: 65 in : :[facility] ReadingLocation: Weight: 100 lb : : Gender: Female BSA: 1.5 m2 : :: 1940 Age: 84 yrs BP: 134/68 mmHg: :Reason For Study: CHRONIC HEART FAILURE : :Ordering Physician: THOMAS, : :ADRIANA Linder Performed By: Cara Weaver : :Referring: ADRIANA PEDERSON : + + Interpretation Summary The patient was in atrial fibrillation with heart rates between 64-82 bpm during the exam. The ejection fraction is estimated to be 55-60%. Diastolic function could not be accurately assessed due to atrial fibrillation. The right ventricle is mildly dilated. The right ventricular systolic function is normal. There is severe biatrial enlargement. There is mild to moderate aortic stenosis. There is mild aortic regurgitation. There is moderate tricuspid regurgitation. The right ventricular systolic pressure is estimated to be at least 39 mmHg based on an estimated right atrial pressure of 8 mm Hg. Procedure: A two-dimensional transthoracic echocardiogram with color flow and Doppler was performed. The study quality was technically adequate. Comparison is made with the echocardiogram of 09/15/2022. The patient was in atrial fibrillation with heart rates between 64-82 bpm during the exam. Left Ventricle: Proximal septal thickening is noted. The left ventricle is normal in size. The ejection fraction is estimated to be 55-60%. Diastolic function could not be accurately assessed due to atrial fibrillation. Right Ventricle: The right ventricle is mildly dilated. The right ventricular systolic function is normal. Atria: There is severe biatrial enlargement. There is no Doppler evidence for an interatrial shunt. Mitral Valve: There is a flat closure plane of the the mitral valve leaflets. There is borderline mitral valve prolapse. There is mild mitral regurgitation. Aortic Valve: The aortic valve is moderately calcified. The aortic valve is trileaflet. There is mild to moderately reduced leaflet mobility. The peak aortic velocity is 2.3 m/sec. The aortic valve mean gradient is 12 mmHg. The calculated aortic valve area is 1.1 cm2. There is mild to moderate aortic stenosis. There is mild aortic regurgitation. Tricuspid Valve: The tricuspid valve is normal in structure but is abnormal in function. There is moderate tricuspid regurgitation. The right ventricular systolic pressure is estimated to be at least 39 mmHg based on an estimated right atrial pressure of 8 mm Hg. Pulmonic Valve: The pulmonic valve leaflets are thin and pliable; valve motion is normal. There is mild pulmonic regurgitation. Great Vessels: The aortic root is normal size. The ascending aorta is mildly enlarged. The IVC is dilated (diameter is greater than 2.1 cm) yet it collapses greater than 50% with a sniff. This suggests a right atrial pressure of 8 mm Hg. Pericardium/ Pleura There is no pericardial effusion. There is no pleural effusion. MMode/2D Measurements & Calculations LVIDd: 4.4 cm LVOT diam: 2.1 cm LVIDs: 2.9 cm Ao root diam: 3.0 cm FS: 33.5 % asc Aorta Diam: 3.6 cm IVSd: 0.69 cm Ao Arch Diam (Prox Trans): 2.4 cm LVPWd: 0.75 cm LV burks. diameter/BSA (cm/m^2): 3.0 LV sys. diameter/BSA (cm/m^2): 2.0 LA A2 area: 26.4 cm2 RA long axis: 5.4 cm LA A4 area: 26.1 cm2 RA area: 22.3 cm2 LA length (vol): 6.1 cm RA vol: 77.6 ml LA vol: 95.9 ml RA : 52.7 ml/m2 LA vol index: 65.1 ml/m2 IVC diam: 2.1 cm RVD1 (basal): 4.0 cm RVD2 (mid): 2.5 cm TAPSE: 1.9 cm Doppler Measurements & Calculations Ao V2 max: 244.1 cm/sec LVOT Max Enmanuel: 69.1 cm/sec Ao V2 mean: 169.2 cm/sec LV V1 max P.9 mmHg Ao max P.8 mmHg LV V1 VTI: 14.6 cm Ao mean P.5 mmHg SARAH(I,D): 0.94 cm2 Ao V2 VTI: 53.9 cm SARAH(V,D): 0.97 cm2 sev ratio: 0.27 SARAH indexed to BSA (cm^2/m^2): 0.64 AI P1/2t: 795.7 msec AI dec slope: 150.7 cm/sec2 MV E max enmanuel: 89.6 cm/sec TR max enmanuel: 276.2 cm/sec MV A max enmanuel: 1.6 cm/sec TR max P.5 mmHg MV E/A: 55.0 PA V2 max: 66.5 cm/sec Med Peak E' Enmanuel: 10.8 cm/sec PA V2 mean: 48.1 cm/sec E/E' med: 8.3 PA mean P.98 mmHg Lat Peak E' Enmanuel: 8.3 cm/sec PA pr(Accel): 48.2 mmHg E/E' lat: 10.7 E/e' average: 9.5 MV dec time: 0.17 sec SV(LVOT): 50.4 ml Reading Physician:12:24 PM
== END ==
PROVIDERS: PCP Internal Medicine; Referring Provider Internal Medicine Cardiovascular Disease; Visit Provider Internal Medicine Cardiovascular Disease
DX: I50.32 Chronic diastolic (congestive) heart failure (principal); I08.3 Combined rheumatic disorders of mitral, aortic and tricuspid valves; I77.89 Other specified disorders of arteries and arterioles
CPT/HCPCS: 93306

== ENCOUNTER → 2024-07-24 13:54 | Outpatient (CLI) | payer MEDICARE, OTHER, SELFPAY ==
[2024-07-24 14:52] LABS: BUN Creatinine Ratio 21.7 (6-22); Blood Urea Nitrogen 18 mg/dL (7-17); Calcium 9.3 mg/dL (8.4-10.2); Carbon Dioxide 28 mmol/L (22-32); Chloride 100 mmol/L (98-107); Estimated Glomerular Filt Rate > 60 mL/min (>60); Glucose 145 mg/dL (80-110); HEMOLYSIS < 15 (0-50); Potassium 3.8 mmol/L (3.4-5.1); Sodium 137 mmol/L (137-145)
== END ==
PROVIDERS: PCP Internal Medicine; Referring Provider Internal Medicine Cardiovascular Disease; Visit Provider Internal Medicine Cardiovascular Disease
DX: I50.32 Chronic diastolic (congestive) heart failure (principal)
CPT/HCPCS: 36415; 80048

== ENCOUNTER → 2024-10-16 16:18 | Outpatient (CLI) | payer MEDICARE, OTHER, SELFPAY ==
[2024-10-16 17:06] LABS: Hematocrit 38.2 % (36-46); Hemoglobin 12.7 g/dL (12.0-16.0); Mean Corpuscular HGB Conc 33.3 % (30-36); Mean Corpuscular Hemoglobin 32.2 PG (26-34); Mean Corpuscular Volume 96.6 fL (80-100); Platelet Count 210 X10^3/uL (150-400); Red Blood Cell Count 3.96 X10^6/uL (4.0-5.2); Red Cell Distribution Width 13.4 % (11.6-14.8); White Blood Cell Count 5.2 X10^3/uL (4.5-11.0)
[2024-10-16 17:14] LABS: Hemoglobin A1C% w Est Avg Glu 5.5 % (4.0-6.0)
[2024-10-16 17:24] LABS: Alanine Aminotransferase 20 IU/L (<35); Albumin 4.5 g/dL (3.5-5.0); Albumin Globulin Ratio 1.5 (1.0-2.8); Alkaline Phosphatase 60 U/L (38-126); Aspartate Aminotransferase 32 IU/L (14-36); BUN Creatinine Ratio 17.1 (6-22); Bilirubin Total 0.9 mg/dL (0.2-1.3); Blood Urea Nitrogen 20 mg/dL (7-17); Calcium 9.7 mg/dL (8.4-10.2); Carbon Dioxide 28 mmol/L (22-32); Chloride 101 mmol/L (98-107); Cholesterol 183 mg/dL (140-199); Estimated Glomerular Filt Rate 45 mL/min (>60); Glucose 128 mg/dL (80-110); HDL Cholesterol 63 mg/dL (40-60); HEMOLYSIS < 15 (0-50); LDL Cholesterol Calculated 103 mg/dL (<100); Sodium 138 mmol/L (137-145); Total Protein 7.5 g/dL (6.3-8.2); Triglycerides 83 mg/dL (35-150)
== END ==
PROVIDERS: PCP Internal Medicine; Referring Provider Internal Medicine; Visit Provider Internal Medicine
DX: I50.30 Unspecified diastolic (congestive) heart failure (principal); I48.20 Chronic atrial fibrillation, unspecified
CPT/HCPCS: 36415; 80053; 80061; 83036; 85027

== ENCOUNTER → 2025-05-01 13:49 | Outpatient (CLI) | payer MEDICARE, OTHER, SELFPAY ==
--- NOTE | 2025-05-01 13:50 | DI.MG.S_ITS ---
MM screening mammo BI: 05/01/2025. BI-RADS: 2 CLINICAL: 85-year old female for bilateral screening mammogram. No Tyrer-Cuzick risk score calculation due to patient's age being over 85 years old. Current reported family history of breast cancer: sister. The patient had a prior right breast biopsy. PRIOR EXAMS 04/17/2024, 03/23/2023, 02/24/2022, 01/29/2021, MAMMOGRAPHY TECHNIQUE: 2D and 3D (tomosynthesis) digital mammographic views obtained, with additional images as needed for full coverage. Current study was also evaluated with a Computer Aided Detection (CAD) system. DENSITY C. The breasts are heterogeneously dense, which may obscure small masses. MAMMOGRAPHY FINDINGS Right: Biopsy marker present on the right. There are no suspicious masses, calcifications, or other findings in the breast. Left: Benign-appearing post-surgical changes noted on the left. There are no suspicious masses, calcifications, or other findings in the breast. IMPRESSION: * No evidence of malignancy with benign findings. RECOMMENDATIONS Bilateral * Annual screening mammography. OVERALL ASSESSMENT CATEGORY BI-RADS-2: Benign. The [employer] [place] recommends annual screening mammography beginning at age 40 for women with average risk of breast cancer. ELECTRONICALLY SIGNED: Sofia Orozco M.D. on 05/04/2025 at 02:50:31 PM PT Interpreting Station ID: [id number]
== END ==
LOC: MAMMO 13:50
PROVIDERS: PCP Internal Medicine; Referring Provider Internal Medicine; Visit Provider Internal Medicine
DX: Z12.31 Encounter for screening mammogram for malignant neoplasm of breast (principal); R92.333 Mammographic heterogeneous density, bilateral breasts; Z80.3 Family history of malignant neoplasm of breast
CPT/HCPCS: 77063; 77067

== ENCOUNTER → 2025-05-22 13:40 | Outpatient (CLI) | payer MEDICARE, OTHER, SELFPAY ==
--- NOTE | 2025-05-22 13:42 | DI.ECHO.S_ITS ---
[facility] +---------+ [facility] : : [address] : : [place] : : [id number] : : Phone: [phone] Echocardiogram Report + + :Name: NANCY MOTT Study Date: 05/22/2025 Height: 64 in : :[facility] ReadingLocation: Weight: 100 lb : : Gender: Female BSA: 1.5 m2 : :: 1940 Age: 85 yrs BP: 114/86 mmHg: :Reason For Study: Chronic heart failure : :Ordering Physician: THOMAS, : :ADRIANA Linder Performed By: Kody Camp : :Referring: ADRIANA GUZMAN : + + Interpretation Summary The patient was in atrial fibrillation with heart rates between 82-120 bpm during the exam. The ejection fraction is estimated to be 55-60%. The right ventricle is mildly dilated. The right ventricular systolic function is normal. There is severe biatrial enlargement. There is moderate mitral regurgitation. There is mild to moderate aortic stenosis. There is mild aortic regurgitation. There is moderate to severe tricuspid regurgitation. The right ventricular systolic pressure is estimated to be at least 45 mmHg based on an estimated right atrial pressure of 15 mm Hg. No significant change compared to prior study 06/18/2024. Procedure: A two-dimensional transthoracic echocardiogram with color flow and Doppler was performed. The study quality was technically adequate. Comparison is made with the echocardiogram of 06/18/2024. The patient was in atrial fibrillation with heart rates between 82-120 bpm during the exam. Left Ventricle: The left ventricle is normal in size and wall thickness. The ejection fraction is estimated to be 55-60%. Diastolic function is indeterminate. Right Ventricle: The right ventricle is mildly dilated. The right ventricular systolic function is normal. Atria: There is severe biatrial enlargement. There is no Doppler evidence for an interatrial shunt. Mitral Valve: There is mild mitral annular calcification. The mitral valve leaflets appear mildly thickened. There is a flat closure plane of the the mitral valve leaflets. There is no mitral valve stenosis. There is moderate mitral regurgitation. Aortic Valve: The aortic valve is trileaflet. The aortic valve is moderately calcified. The peak aortic velocity is 2.1 m/sec. The aortic valve mean gradient is 9.8 mmHg. The calculated aortic valve area is 1.1 cm2. There is mild to moderate aortic stenosis. There is mild aortic regurgitation. Tricuspid Valve: The tricuspid valve leaflets are thin and pliable. There is moderate to severe tricuspid regurgitation. The right ventricular systolic pressure is estimated to be at least 45 mmHg based on an estimated right atrial pressure of 15 mm Hg. Pulmonic Valve: The pulmonic valve is not well seen, but is grossly normal. There is trace pulmonic regurgitation. Great Vessels: The aortic root is normal size. Based on patients BSA, the proximal ascending aorta is dilated with a max diameter of 3.8 cm. The aortic arch could not be visualized. The pulmonary is not well visualized. The IVC is dilated (diameter is greater than 2.1 cm) and it collapses less than 50% with a sniff. This suggests a high right atrial pressure of 15 mm Hg. Pericardium/ Pleura There is no pericardial effusion. MMode/2D Measurements & Calculations LVIDd: 3.8 cm LVOT diam: 2.0 cm LVIDs: 2.6 cm Ao root diam: 3.2 cm FS: 31.3 % asc Aorta Diam: 3.8 cm IVSd: 0.81 cm LVPWd: 0.86 cm LV burks. diameter/BSA (cm/m^2): 2.6 LV sys. diameter/BSA (cm/m^2): 1.8 LA A2 area: 14.6 cm2 RA long axis: 5.6 cm LA A4 area: 17.1 cm2 RA area: 18.1 cm2 LA length (vol): 5.2 cm RA vol: 49.5 ml LA vol: 40.6 ml RA : 33.9 ml/m2 LA vol index: 27.9 ml/m2 IVC diam: 2.5 cm RVD1 (basal): 3.4 cm RVD2 (mid): 3.1 cm TAPSE: 1.8 cm Doppler Measurements & Calculations Ao V2 max: 206.7 cm/sec LVOT Max Enmanuel: 72.3 cm/sec Ao V2 mean: 146.7 cm/sec LV V1 max P.1 mmHg Ao max P.1 mmHg LV V1 VTI: 12.9 cm Ao mean P.8 mmHg SARAH(I,D): 1.1 cm2 Ao V2 VTI: 36.0 cm SARAH(V,D): 1.1 cm2 sev ratio: 0.36 SARAH indexed to BSA (cm^2/m^2): 0.77 MV E max enmanuel: 107.6 cm/sec TR max enmanuel: 267.2 cm/sec Med Peak E' Enmanuel: 7.9 cm/sec TR max P.6 mmHg E/E' med: 13.5 PA V2 max: 77.3 cm/sec Lat Peak E' Enmanuel: 8.3 cm/sec PA V2 mean: 55.0 cm/sec E/E' lat: 13.0 PA mean P.3 mmHg E/e' average: 13.3 PA pr(Accel): 34.0 mmHg MV dec time: 0.11 sec SV(LVOT): 40.5 ml Reading Physician:03:18 PM
== END ==
PROVIDERS: PCP Internal Medicine; Referring Provider Internal Medicine; Visit Provider Internal Medicine Cardiovascular Disease
DX: I08.3 Combined rheumatic disorders of mitral, aortic and tricuspid valves (principal); I50.32 Chronic diastolic (congestive) heart failure; I77.810 Thoracic aortic ectasia; I48.91 Unspecified atrial fibrillation
CPT/HCPCS: 93306